=== PATIENT | female | born 1935 | race Caucasian/White ===

== ENCOUNTER → 2016-08-11 | Outpatient (CLI) | payer MEDICARE ==
[2016-08-11 16:54] LABS: Appearance,Urine Clear (Clear); Bilirubin,Urine Negative (Negative); Glucose,Urine (UA) Negative (Negative); Ketones,Urine Negative (Negative); Leukocyte Esterase,Urine Negative (Negative); Nitrite,Urine Negative (Negative); PH, Urine 5.5 (5.0-8.0); Protein,Urine Negative (Negative); Specific Gravity,Urine 1.009 (1.001-1.035); UA Billing (MACRO vs. MICRO) CHEM; Urobilinogen,Urine <2.0 mg/dL (<2.0)
== END ==
LOC: LABWHC1 15:55
PROVIDERS: ATTEND Physician Assistant
DX: N39.0 Urinary tract infection, site not specified (principal)
CPT/HCPCS: 81003; 87086

== ENCOUNTER → 2016-09-01 | Outpatient (CLI) | payer MEDICARE ==
--- NOTE | 2016-09-01 14:45 | CT ---
EXAMINATION TYPE: CT brain wo/w con DATE OF EXAM: 09/01/2016 COMPARISON: CT brain July 06, 2015. HISTORY: dizziness, loss of smell CT DLP: 1922 mGycm Automated exposure control for dose reduction was used. CONTRAST: CT scan of the head is performed with IV Contrast, patient injected with 100 mL of Omnipaque 300. FINDINGS: Noncontrast images show no acute intracranial hemorrhage or midline shift. There is ventricular and s ulcal prominence consistent with mild age-related cerebral atrophy. Postcontrast images show no suspi cious enhancing mass. There is mucous retention cyst or polyp in the posterior right maxillary sinus redemonstrated. An air-fluid levels also now felt present. There is new dependent opacity left spheno id sinus. There is small mucous retention cyst or polyp in the medial left frontal sinus redemonstrat ed. The globes are intact bilaterally. Suprasellar cistern is maintained. No pituitary enlargement id entified. IMPRESSION: Mild age-related cerebral atrophy redemonstrated. No suspicious enhancing mass noted. New acute bilateral sphenoid sinus disease. Suspect enlarging posterior right sphenoid mucous retention cyst or polyp.
== END | disposition home or self-care (01) ==
LOC: RADCTMAIN 13:05
PROVIDERS: ATTEND Family Medicine
DX: G31.1 Senile degeneration of brain, not elsewhere classified (principal)
CPT/HCPCS: 82565; 84520; 70470; 36415; Q9967

== ENCOUNTER → 2017-03-10 | Outpatient (CLI) | payer MEDICARE ==
--- NOTE | 2017-03-10 14:06 | CT ---
EXAMINATION TYPE: CT sinus wo con DATE OF EXAM: 03/10/2017 COMPARISON: NONE HISTORY: 81-year-old female with loss of smell, chronic Sinusitis CT DLP: 628.7 mGycm Automated exposure control for dose reduction was used. TECHNIQUE: Noncontrast axial views of the paranasal sinuses were obtained. Coronal reconstructions pe rformed. FINDINGS: There is some lobulated mucosal thickening within the left sphenoid sinus and a possible 1.3 cm polyp in the right sphenoid sinus. Trace mucosal thickening ethmoid air cells and maxillary sinuses. Small mucosal retention cyst in the left frontal sinus. There is no air-fluid level. Reactive erica- osteogenesis is not seen. There is no destruction of the osseous lo of the paranasal sinuses. The osteomeatal complexes are patent. Slight undulating nasal septum. The imaged brain and orbits are normal in appearance. Mastoid air cells and middle ear cavities are well pneumatized. Reformatted images confirm above findings. IMPRESSION: Mild chronic pansinus disease. There may be a 1.3 cm polyp in the right sphenoid sinus.
== END | disposition home or self-care (01) ==
LOC: RADCTMAIN 13:21
PROVIDERS: ATTEND Otolaryngology
DX: J32.9 Chronic sinusitis, unspecified (principal)
CPT/HCPCS: 70486

== ENCOUNTER → 2018-07-21 | Outpatient (CLI) | payer MEDICARE ==
[2018-07-21 16:44] LABS: Albumin 4.1 g/dL (3.80-4.90); Albumin/Globulin Ratio 2.41 (1.60-3.17); Anion Gap 9.3 mmol/L (4.00-12.00); Carbon Dioxide 27.7 mmol/L (21.6-31.8); Globulin 1.7 g/dL (1.6-3.3); LDL Cholesterol,Calculated 63.2 mg/dL (0.0-131.0); Potassium 4.2 mmol/L (3.5-5.5); Total Bilirubin 0.8 mg/dL (0.2-1.2); Total Protein 5.8 g/dL (6.2-8.2); VLDL Calculation 19.8 mg/dL (5.00-40.00)
== END | disposition home or self-care (01) ==
LOC: LABWHC1 09:47
PROVIDERS: ATTEND Internal Medicine Interventional Cardiology
DX: E78.2 Mixed hyperlipidemia (principal)
CPT/HCPCS: 36415; 80053; 80061

== ENCOUNTER → 2018-07-21 | Outpatient (CLI) | payer MEDICARE ==
--- NOTE | 2018-07-21 09:52 | US ---
EXAMINATION TYPE: US duplex aorta DATE OF EXAM: 07/21/2018 COMPARISON: NONE CLINICAL HISTORY: Z13.9 encounter for screening unspecified. Screening, pt has no complaints at this time EXAM MEASUREMENTS: Abdominal Aorta: Proximal: 3.0 x 2.9 cm Mid: 2.1 x 2.5 cm Distal: 2.2 x 2.2 cm Bifurcation: BONI: 1.1 x 1.0 cm VENKAT: 1.0 x 0.9 cm Wall calcifications, ectatic aorta with upper limits of normal for measurements IMPRESSION: 1. No evidence for abdominal aortic aneurysm. Ectasia is noted as well as Atheromatous changes.
== END ==
LOC: RADUSWWP 09:24
PROVIDERS: ATTEND Family Medicine
DX: Z13.9 Encounter for screening, unspecified (principal)
CPT/HCPCS: 93979

== ENCOUNTER 2023-10-06 09:59 | Emergency (ER) | payer MEDICARE ==
--- NOTE | 2023-10-06 10:40 | ED ---
General Adult HPI - General Chief complaint: Fall Stated complaint: L ear cut/injury Time Seen by Provider: 10/06/23 10:08 Source: patient, RN notes reviewed Mode of arrival: ambulatory Limitations: no limitations - History of Present Illness Initial comments: 88-year-old female presents to the emergency department for evaluation of syncopal episode with fall. Patient states that she got up from bed this morning and started to feel lightheaded. She states that she lost consciousness for a few seconds causing her to fall and hit her head on the door frame. She states that she hit her left ear. She denies any other preceding symptoms. Denies chest pain, shortness of breath. Denies blood thinners. - Related Data Home Medications Medication Instructions Recorded Confirmed Acetaminophen Tab [Tylenol Tab] 500 mg PO DAILY 10/06/23 10/06/23 Aspirin EC [Ecotrin Low Dose] 81 mg PO DAILY 10/06/23 10/06/23 Atorvastatin [Lipitor] 40 mg PO HS 10/06/23 10/06/23 Citalopram Hydrobromide [CeleXA] 20 mg PO DAILY 10/06/23 10/06/23 L.acidoph,Paracasei, B.lactis 1 cap PO DAILY 10/06/23 10/06/23 [Probiotic] Midodrine HCl [ProAmantine] 2.5 mg PO TID 10/06/23 10/06/23 Psyllium Husk [Fiber Capsule] 1.2 gm PO DAILY 10/06/23 10/06/23 oxyBUTYnin chloride [Ditropan] 5 mg PO DAILY 10/06/23 10/06/23 Previous Rx's Medication Instructions Recorded Ciprofloxacin HCl 500 mg PO BID #14 tab 10/06/23 Allergies Allergy/AdvReac Type Severity Reaction Status Date / Time Penicillins Allergy Rash/Hives Verified 10/06/23 13:37 Review of Systems ROS Statement: Those systems with pertinent positive or pertinent negative responses have been documented in the HPI. ROS Other: All systems not noted in ROS Statement are negative. Past Medical History Past Medical History: Coronary Artery Disease (CAD), Hyperlipidemia, Hypertension, Pulmonary Embolus (PE) Additional Past Medical History / Comment(s): anxiety , PHLEBITIS AND PE 25 YEARS AGO, SHINGLES 2 YEARS AGO History of Any Multi-Drug Resistant Organisms: None Reported Past Surgical History: Adenoidectomy, Bladder Surgery, Hysterectomy, Tonsillectomy Additional Past Surgical History / Comment(s): Stent placement 2014.IMPLANTED TOOTH(METAL POST) Past Anesthesia/Blood Transfusion Reactions: No Reported Reaction Date of Last Stent Placement:: 2014 Past Psychological History: Anxiety Past Alcohol Use History: Occasional Past Drug Use History: None Reported - Past Family History Father Family Medical History: Myocardial Infarction ([place]) Additional Family Medical History / Comment(s): AGE 59 FROM 3RD [place] Mother Additional Family Medical History / Comment(s): AGE 57 CEREBRAL ANEURYSM General Exam Limitations: no limitations General appearance: alert, in no apparent distress Head exam: Present: normocephalic, other (1.5cm laceration to left auricle) Eye exam: Present: normal appearance, PERRL, EOMI. Absent: scleral icterus, conjunctival injection, periorbital swelling ENT exam: Present: normal oropharynx, TM's normal bilaterally, other (1.5cm laceration to left auricle) Neck exam: Present: normal inspection. Absent: tenderness, meningismus, lymphadenopathy Respiratory exam: Present: normal lung sounds bilaterally. Absent: respiratory distress, wheezes, rales, rhonchi, stridor Cardiovascular Exam: Present: regular rate, irregular rhythm, normal heart sounds. Absent: systolic murmur, diastolic murmur, rubs, gallop, clicks Extremities exam: Present: normal inspection, full ROM, normal capillary refill. Absent: tenderness, pedal edema, joint swelling, calf tenderness Back exam: Present: normal inspection Neurological exam: Present: alert, oriented X3, CN II-XII intact Psychiatric exam: Present: normal affect, normal mood Skin exam: Present: warm, dry, normal color, other. Absent: intact, rash Course Vital Signs 10/06/23 10/06/23 10/06/23 10:00 10:25 11:05 Temperature 97.9 F 98.2 F Pulse Rate 69 74 71 Respiratory 18 18 17 Rate Blood Pressure 85/56 140/73 174/79 Blood Pressure [Left Arm Sitting] Blood Pressure [Left Arm Standing] Blood Pressure [Left Arm Supine] O2 Sat by Pulse 94 L 95 96 Oximetry 10/06/23 10/06/23 10/06/23 12:02 13:58 16:30 Temperature 97.7 F Pulse Rate 70 73 Respiratory 16 18 Rate Blood Pressure 172/83 164/91 Blood Pressure 100/60 [Left Arm Sitting] Blood Pressure 78/54 [Left Arm Standing] Blood Pressure 182/82 [Left Arm Supine] O2 Sat by Pulse 97 98 Oximetry 10/06/23 10/06/23 16:47 16:59 Temperature 98.4 F Pulse Rate 65 70 Respiratory 16 18 Rate Blood Pressure 187/92 181/86 Blood Pressure [Left Arm Sitting] Blood Pressure [Left Arm Standing] Blood Pressure [Left Arm Supine] O2 Sat by Pulse 97 95 Oximetry Procedures - Laceration Laceration #1 Consent Obtained: verbal consent Indication: laceration Site: other (Ear) Size (cm): 2 Description: linear Depth: [id number] Anesthetic Used: lidocaine 1% Anesthesia Technique: nerve block Pre-repair: wound explored, irrigated extensively Type of Sutures: vicryl, other Size of Sutures: 5-0, 6-0 Number of Sutures: 6 (2 Vicryl) Technique: simple, interrupted Patient Tolerated Procedure: well, no complications Medical Decision Making - Medical Decision Making Was pt. sent in by a medical professional or institution (Dr. PA, [employer], urgent care, hospital, or prison...) When possible be specific @ -No Did you speak to anyone other than the patient for history (EMS, parent, family, police, friend...)? What history was obtained from this source @ -Patient's son provided some history for this patient Did you review nursing and triage notes (agree or disagree)? Why? @ -I reviewed and agree with nursing and triage notes Were old charts reviewed (outside hosp., previous admission, EMS record, old EKG, old radiological studies, urgent care reports/EKG's, prison records)? Report findings @ -No old charts were reviewed Differential Diagnosis (chest pain, altered mental status, abdominal pain women, abdominal pain men, vaginal bleeding, weakness, fever, dyspnea, syncope, headache, dizziness, GI bleed, back pain, seizure, CVA, palpatations, mental health, musculoskeletal)? @ -Differential Syncope: Valvular disease, hypertrophic cardiomyopathy, pulmonary embolism, tamponade, tachycardia, bradycardia, [place], hypovolemia, hemorrhage, dissection, anemia, intracranial hemorrhage, seizure, hypoglycemia, carbon monoxide poisoning, this is not meant to be an all-inclusive list. EKG interpreted by me (3pts min.). @ -EKG at 1011 shows right bundle branch pattern rate 80, NV 232, QRS 125, QTQTc [id number] X-rays interpreted by me (1pt min.). @ -None done CT interpreted by me (1pt min.). @ -CT brain and C-spine shows no acute intracranial process, no acute C-spine fracture or traumatic malalignment U/S interpreted by me (1pt. min.). @ -None done What testing was considered but not performed or refused? (CT, X-rays, U/S, labs)? Why? @ -None What meds were considered but not given or refused? Why? @ -None Did you discuss the management of the patient with other professionals (professionals i.e. , PA, [employer], lab, RT, psych nurse, social services technician, childbirth educator, t eacher, chief information officer, case consultant)? Give summary @ -No Was smoking cessation discussed for >3mins.? @ -No Was critical care preformed (if so, how long)? @ -No Were there social determinants of health that impacted care today? How? (Homelessness, low income, unemployed, alcoholism, drug addiction, transportation, low edu. Level, literacy, decrease access to med. care, snf, rehab)? @ -No Was there de-escalation of care discussed even if they declined (Discuss DNR or withdrawal of care, Hospice)? DNR status @ -No What co-morbidities impacted this encounter? (DM, HTN, Smoking, COPD, CAD, Cancer, CVA, ARF, Chemo, Hep., AIDS, mental health diagnosis, sleep apnea, morbid obesity)? @ -None Was patient admitted / discharged? Hospital course, mention meds given and route, prescriptions, significant lab abnormalities, going to OR and other pertinent info. @ -Discharge. Patient presented to the emergency department for evaluation of syncopal episode with ear laceration. CT brain and C-spine was obtained which shows no acute intracranial process, no acute C-spine fracture or traumatic malalignment. Laboratory studies obtained CBC unremarkable, mild hyponatremia 131. UA shows no evidence of infectious process. Laceration of the ear was repaired and a pressure dressing was applied. Patient will be started on ciprofloxacin prophylactically for chondritis. She was also updated on tetanus vaccination. Orthostatics were evaluated and orthostatic positive from sitting to standing. Patient was given a dose of her midodrine and provided IV fluids. She did have some improvement in her blood pressure but was still orthostatic positive although she was not symptomatic at that time. I recommended observation but patient refused admission. Patient will be discharged. She is advised to follow-up with ENT for the ear laceration. She is understanding and agreeable with this plan. Patient stable at time of discharge. Case discussed with Dr. Banegas Undiagnosed new problem with uncertain prognosis? @ -No Drug Therapy requiring intensive monitoring for toxicity (Heparin, Nitro, Insulin, Cardizem)? @ -No Were any procedures done? @ -Laceration repair Diagnosis/symptom? @ -Laceration, syncope, fall, head injury Acute, or Chronic, or Acute on Chronic? @ -Acute Uncomplicated (without systemic symptoms) or Complicated (systemic symptoms)? @ -Complicated Side effects of treatment? @ -No Exacerbation, Progression, or Severe Exacerbation? @ -No Poses a threat to life or bodily function? How? (Chest pain, [place], [place], pneumonia, PE, COPD, DKA, ARF, appy, cholecystitis, CVA, Diverticulitis, Homicidal, Suicidal, threat to staff... and all critical care pts) @ -No - Lab Data Result diagrams: 10/06/23 10:35 10/06/23 10:35 Lab Results 10/06/23 10/06/23 10/06/23 Range/Units 10:35 10:35 10:35 WBC 6.1 (3.8-10.6) k/uL RBC 4.67 (3.80-5.40) m/uL Hgb 13.9 (11.4-16.0) gm/dL Hct 42.9 (34.0-46.0) % MCV 91.9 (80.0-100.0) fL MCH 29.7 (25.0-35.0) pg MCHC 32.4 (31.0-37.0) g/dL RDW 14.8 (11.5-15.5) % Plt Count 251 (150-450) k/uL MPV 7.4 Neutrophils % 84 % Lymphocytes % 8 % Monocytes % 6 % Eosinophils % 1 % Basophils % 0 % Neutrophils # 5.1 (1.3-7.7) k/uL Lymphocytes # 0.5 L (1.0-4.8) k/uL Monocytes # 0.3 (0-1.0) k/uL Eosinophils # 0.1 (0-0.7) k/uL Basophils # 0.0 (0-0.2) k/uL PT 10.7 (10.0-12.5) sec INR 1.0 (<1.2) APTT 23.1 (22.0-30.0) sec Sodium (137-145) mmol/L Potassium (3.5-5.1) mmol/L Chloride (98-107) mmol/L Carbon Dioxide (22-30) mmol/L Anion Gap mmol/L BUN (7-17) mg/dL Creatinine (0.52-1.04) mg/dL Est GFR (CKD-EPI)AfAm (>60 ml/min/1.73 sqM) Est GFR (CKD-EPI)NonAf (>60 ml/min/1.73 sqM) Glucose (74-99) mg/dL Calcium (8.4-10.2) mg/dL Magnesium (1.6-2.3) mg/dL Total Bilirubin (0.2-1.3) mg/dL AST (14-36) U/L ALT (4-34) U/L Alkaline Phosphatase (38-126) U/L Troponin I (0.000-0.034) ng/mL Total Protein (6.3-8.2) g/dL Albumin (3.5-5.0) g/dL Urine Color Colorless Urine Appearance Clear (Clear) Urine pH 6.0 (5.0-8.0) Ur Specific [place] 1.009 (1.001-1.035) Urine Protein Negative (Negative) Urine Glucose (UA) Negative (Negative) Urine Ketones Negative (Negative) Urine Blood Negative (Negative) Urine Nitrite Negative (Negative) Urine Bilirubin Negative (Negative) Urine Urobilinogen <2.0 (<2.0) mg/dL Ur Leukocyte Esterase Negative (Negative) 10/06/23 10/06/23 Range/Units 10:35 10:35 WBC (3.8-10.6) k/uL RBC (3.80-5.40) m/uL Hgb (11.4-16.0) gm/dL Hct (34.0-46.0) % MCV (80.0-100.0) fL MCH (25.0-35.0) pg MCHC (31.0-37.0) g/dL RDW (11.5-15.5) % Plt Count (150-450) k/uL MPV Neutrophils % % Lymphocytes % % Monocytes % % Eosinophils % % Basophils % % Neutrophils # (1.3-7.7) k/uL Lymphocytes # (1.0-4.8) k/uL Monocytes # (0-1.0) k/uL Eosinophils # (0-0.7) k/uL Basophils # (0-0.2) k/uL PT (10.0-12.5) sec INR (<1.2) APTT (22.0-30.0) sec Sodium 131 L (137-145) mmol/L Potassium 3.8 (3.5-5.1) mmol/L Chloride 100 (98-107) mmol/L Carbon Dioxide 25 (22-30) mmol/L Anion Gap 6 mmol/L BUN 20 H (7-17) mg/dL Creatinine 0.94 (0.52-1.04) mg/dL Est GFR (CKD-EPI)AfAm 63 (>60 ml/min/1.73 sqM) Est GFR (CKD-EPI)NonAf 55 (>60 ml/min/1.73 sqM) Glucose 104 H (74-99) mg/dL Calcium 9.4 (8.4-10.2) mg/dL Magnesium 2.0 (1.6-2.3) mg/dL Total Bilirubin 1.1 (0.2-1.3) mg/dL AST 23 (14-36) U/L ALT 16 (4-34) U/L Alkaline Phosphatase 65 (38-126) U/L Troponin I <0.012 (0.000-0.034) ng/mL Total Protein 6.0 L (6.3-8.2) g/dL Albumin 3.9 (3.5-5.0) g/dL Urine Color Urine Appearance (Clear) Urine pH (5.0-8.0) Ur Specific [place] (1.001-1.035) Urine Protein (Negative) Urine Glucose (UA) (Negative) Urine Ketones (Negative) Urine Blood (Negative) Urine Nitrite (Negative) Urine Bilirubin (Negative) Urine Urobilinogen (<2.0) mg/dL Ur Leukocyte Esterase (Negative) Disposition Clinical Impression: Fall, Syncope, Laceration Disposition: HOME SELF-CARE Condition: Stable Instructions (If sedation given, give patient instructions): Care For Your Stitches (ED) Additional Instructions: I recommend hospital admission due to low blood pressure and dizziness. Please follow up closely with your primary care provider. Return to the emergency department for new or worsening symptoms. Is patient prescribed a controlled substance at d/c from ED?: No Referrals: Francisco Fagan MD [Primary Care Provider] - 1-2 days Rafael Mills DO [Doctor of Osteopathic Medicine] - 1-2 days
[2023-10-06 10:44] LABS: Basophils % (A) 0 %; Eosinophils # (A) 0.1 k/uL (0-0.7); Eosinophils % (A) 1 %; HCT 42.9 % (34.0-46.0); HGB 13.9 gm/dL (11.4-16.0); Lymphocytes # (A) 0.5 k/uL (1.0-4.8); Lymphocytes % (A) 8 %; MCH 29.7 pg (25.0-35.0); MCHC 32.4 g/dL (31.0-37.0); MCV 91.9 fL (80.0-100.0); Mean Platelet Volume 7.4; Monocytes # (A) 0.3 k/uL (0-1.0); Monocytes % (A) 6 %; Neutrophils # (A) 5.1 k/uL (1.3-7.7); Neutrophils % (A) 84 %; Platelet Count 251 k/uL (150-450); RBC 4.67 m/uL (3.80-5.40); RDW 14.8 % (11.5-15.5); WBC 6.1 k/uL (3.8-10.6)
[2023-10-06 10:56] LABS: ALT 16 U/L (4-34); AST 23 U/L (14-36); African American GFR (CKD) 63 (>60 ml/min/1.73 sqM); Albumin 3.9 g/dL (3.5-5.0); Alkaline Phosphatase 65 U/L (38-126); Anion Gap 6 mmol/L; Blood Urea Nitrogen 20 mg/dL (7-17); Calcium 9.4 mg/dL (8.4-10.2); Carbon Dioxide 25 mmol/L (22-30); Chloride 100 mmol/L (98-107); Glucose 104 mg/dL (74-99); Non-African American GFR(CKD) 55 (>60 ml/min/1.73 sqM); Potassium 3.8 mmol/L (3.5-5.1); Sodium 131 mmol/L (137-145); Total Bilirubin 1.1 mg/dL (0.2-1.3)
[2023-10-06] MEDS: DIPH,PERTUS(ACELL)TETVAC-LF 0.5 ML VIAL IM ONE (10:56)
[2023-10-06 11:03] LABS: Partial Thromboplastin Time 23.1 sec (22.0-30.0); Prothrombin Time 10.7 sec (10.0-12.5)
--- NOTE | 2023-10-06 11:09 | CT ---
EXAMINATION TYPE: CT brain sal[place] crouch con DATE OF EXAM: 10/06/2023 COMPARISON: CT brain dated 09/01/2016 HISTORY: Fall CT DLP: 1254.9 mGycm Automated exposure control for dose reduction was used. TECHNIQUE: CT scan of the head and cervical spine are performed without contrast. Findings: Head CT: Ventricles, basal cisterns and sulci over convexities within normal limits for the patient's age and there is no mass, mass effect or shift of midline structures. There is mild diffuse decreased density in the periventricular white matter consistent with a chronic ischemic white matter demyelination. There is no acute intra or extra-axial hemorrhage. Posterior fossa including the brainstem, fourth ventricle and cerebellar pontine angles are grossly n ormal. The intraorbital contents appear normal and symmetric. Visualized paranasal sinuses are well aerated. CT cervical spine: Craniovertebral junction relationships and prevertebral soft tissues are normal. The cervical vertebral segments are normal in height and alignment and there is no fracture subluxati on. There is moderate degenerative disc space with disc space narrowing and spondylosis at the C5-6 level . There is mild to moderate degeneration of multiple facet joints and uncovertebral joints in mid-low er cervical spine. There is no bony encroachment of the cervical spinal canal there is moderate bony neural foraminal encroachment at C5-6 bilaterally. The bony cervical canal is widely patent and there is no bony encroachment of the neural foramina. The paraspinal soft tissues unremarkable. IMPRESSION: 1. Head CT: No acute bleed or mass effect. Mild senescent changes 2. CT cervical spine: No acute trauma.
[2023-10-06] MEDS: LIDOCAINE 1% INJ 10MG/ML (20 ML MDV) SQ ONE (11:29)
[2023-10-06 13:05] LABS: Appearance,Urine Clear (Clear); Bilirubin,Urine Negative (Negative); Blood,Urine Negative (Negative); Color,Urine Colorless; Glucose,Urine (UA) Negative (Negative); Ketones,Urine Negative (Negative); Leukocyte Esterase,Urine Negative (Negative); Nitrite,Urine Negative (Negative); Protein,Urine Negative (Negative); Specific Gravity,Urine 1.009 (1.001-1.035); Urobilinogen,Urine <2.0 mg/dL (<2.0)
[2023-10-06] MEDS: MIDODRINE 5 MG TAB PO STA (14:34)
[2023-10-06] MEDS: SODIUM CHLORIDE 0.9% 1,000 ML IV ONE (14:36)
[2023-10-06 17:04] VITALS: BP 181/86; PULSE 70; RESP 18; TEMP 98.4
== END 2023-10-06 17:11 | disposition home or self-care (01) ==
LOC: EC 09:59
DX: S01.312A Laceration without foreign body of left ear, initial encounter (principal); R55 Syncope and collapse; Z88.0 Allergy status to penicillin; Z23 Encounter for immunization; W01.110A Fall on same level from slipping, tripping and stumbling with subsequent striking against sharp glass, initial encounter
CPT/HCPCS: 36415; 93005; 80053; 83735; 84484; 85025; 85610; 85730; 81003; 72125; 70450; 90715; 99284; 12011; 90471; 96360; 96361; J2001

== ENCOUNTER 2023-10-07 14:03 | Inpatient (IN) | payer MEDICARE ==
[2023-10-07 16:14] LABS: Basophils % (A) 0 %; Eosinophils # (A) 0.1 k/uL (0-0.7); Eosinophils % (A) 1 %; HCT 39.6 % (34.0-46.0); HGB 13.2 gm/dL (11.4-16.0); Lymphocytes # (A) 0.5 k/uL (1.0-4.8); Lymphocytes % (A) 8 %; MCH 30.9 pg (25.0-35.0); MCHC 33.5 g/dL (31.0-37.0); MCV 92.2 fL (80.0-100.0); Mean Platelet Volume 6.9; Monocytes # (A) 0.4 k/uL (0-1.0); Monocytes % (A) 6 %; Neutrophils # (A) 5.4 k/uL (1.3-7.7); Neutrophils % (A) 84 %; Platelet Count 228 k/uL (150-450); RBC 4.29 m/uL (3.80-5.40); RDW 14.5 % (11.5-15.5); WBC 6.5 k/uL (3.8-10.6)
--- NOTE | 2023-10-07 16:28 | ED ---
General Adult HPI - General Chief complaint: Recheck/Abnormal Lab/Rx Stated complaint: Fall/Head Time Seen by Provider: 10/07/23 14:53 Source: patient, RN notes reviewed Mode of arrival: ambulatory Limitations: no limitations - History of Present Illness Initial comments: 88-year-old female presents to the emergency department for evaluation of lightheaded episodes. Patient was evaluated here yesterday for a syncopal episode resulting in her hitting her head and causing a laceration to her ear. Patient was adamant on being discharged yesterday although admission was recommended at that time due to positive orthostatic vital signs and lightheaded ness. Patient reports continued symptoms now. She is taking her midodrine as prescribed. Patient hoping for placement into rehabilitation facility. - Related Data Home Medications Medication Instructions Recorded Confirmed Acetaminophen Tab [Tylenol Tab] 500 mg PO DAILY 10/06/23 10/07/23 Aspirin EC [Ecotrin Low Dose] 81 mg PO DAILY 10/06/23 10/07/23 Atorvastatin [Lipitor] 40 mg PO HS 10/06/23 10/07/23 Citalopram Hydrobromide [CeleXA] 20 mg PO DAILY 10/06/23 10/07/23 L.acidoph,Paracasei, B.lactis 1 cap PO DAILY 10/06/23 10/07/23 [Probiotic] Midodrine HCl [ProAmantine] 2.5 mg PO TID 10/06/23 10/07/23 Psyllium Husk [Fiber Capsule] 1.2 gm PO DAILY 10/06/23 10/07/23 oxyBUTYnin chloride [Ditropan] 5 mg PO DAILY 10/06/23 10/07/23 dexAMETHasone [Decadron Elixir] 0.5 mg PO DIRECTED 10/07/23 10/07/23 Previous Rx's Medication Instructions Recorded Ciprofloxacin HCl 500 mg PO BID #14 tab 10/06/23 Allergies Allergy/AdvReac Type Severity Reaction Status Date / Time Penicillins Allergy Rash/Hives Verified 10/07/23 17:51 Review of Systems ROS Statement: Those systems with pertinent positive or pertinent negative responses have been documented in the HPI. ROS Other: All systems not noted in ROS Statement are negative. Past Medical History Past Medical History: Coronary Artery Disease (CAD), Hyperlipidemia, Hypertension, Pulmonary Embolus (PE) Additional Past Medical History / Comment(s): anxiety , PHLEBITIS AND PE 25 YEARS AGO, SHINGLES 2 YEARS AGO History of Any Multi-Drug Resistant Organisms: None Reported Past Surgical History: Adenoidectomy, Bladder Surgery, Hysterectomy, Tonsillectomy Additional Past Surgical History / Comment(s): Stent placement 2014.IMPLANTED TOOTH(METAL POST) Past Anesthesia/Blood Transfusion Reactions: No Reported Reaction Date of Last Stent Placement:: 2014 Past Psychological History: Anxiety Smoking Status: Never smoker Past Alcohol Use History: Occasional Past Drug Use History: None Reported - Past Family History Father Family Medical History: Myocardial Infarction (MT) Additional Family Medical History / Comment(s): AGE 59 FROM 3RD MT Mother Additional Family Medical History / Comment(s): AGE 57 CEREBRAL ANEURYSM General Exam Limitations: no limitations General appearance: alert, in no apparent distress Head exam: Present: atraumatic, normocephalic, normal inspection Eye exam: Present: normal appearance, PERRL, EOMI. Absent: scleral icterus, conjunctival injection, periorbital swelling ENT exam: Present: normal exam, mucous membranes moist Neck exam: Present: normal inspection. Absent: tenderness, meningismus, lymphadenopathy Respiratory exam: Present: normal lung sounds bilaterally. Absent: respiratory distress, wheezes, rales, rhonchi, stridor Cardiovascular Exam: Present: regular rate, normal rhythm, normal heart sounds. Absent: systolic murmur, diastolic murmur, rubs, gallop, clicks Extremities exam: Present: normal inspection, full ROM, normal capillary refill. Absent: tenderness, pedal edema, joint swelling, calf tenderness Back exam: Present: normal inspection Neurological exam: Present: alert, oriented X3 Course Vital Signs 10/07/23 10/07/23 10/07/23 14:10 15:53 16:06 Temperature 97.5 F L Pulse Rate 57 L 58 L Pulse Rate [ 65 Right Pulse Oximetery] Pulse Rate [ 60 Right Sitting Pulse Oximetery ] Pulse Rate [ 80 Right Standing Pulse Oximetery ] Respiratory 18 16 Rate Blood Pressure 119/76 180/83 Blood Pressure 133/74 [Right Arm Sitting] Blood Pressure 94/56 [Right Arm Standing] Blood Pressure 184/87 [Right Arm Supine] O2 Sat by Pulse 96 96 Oximetry Medical Decision Making - Medical Decision Making Was pt. sent in by a medical professional or institution (Dr., PA, RUG WEAVER, urgent care, hospital, or fci...) When possible be specific @ -No Did you speak to anyone other than the patient for history (EMS, parent, family, police, friend...)? What history was obtained from this source @ -No Did you review nursing and triage notes (agree or disagree)? Why? @ -I reviewed and agree with nursing and triage notes Were old charts reviewed (outside hosp., previous admission, EMS record, old EKG, old radiological studies, urgent care reports/EKG's, fci records)? Report findings @ -No old charts were reviewed Differential Diagnosis (chest pain, altered mental status, abdominal pain women, abdominal pain men, vaginal bleeding, weakness, fever, dyspnea, syncope, headache, dizziness, GI bleed, back pain, seizure, CVA, palpatations, mental health, musculoskeletal)? @ -Differential Syncope: Valvular disease, hypertrophic cardiomyopathy, pulmonary embolism, tamponade, tachycardia, bradycardia, MT, hypovolemia, hemorrhage, dissection, anemia, intracranial hemorrhage, seizure, hypoglycemia, carbon monoxide poisoning, this is not meant to be an all-inclusive list. EKG interpreted by me (3pts min.). @ -As above X-rays interpreted by me (1pt min.). @ -None done CT interpreted by me (1pt min.). @ -None done U/S interpreted by me (1pt. min.). @ -None done What testing was considered but not performed or refused? (CT, X-rays, U/S, labs)? Why? @ -None What meds were considered but not given or refused? Why? @ -None Did you discuss the management of the patient with other professionals (professionals i.e. SAUNDRA Mayo, R[employer] WE[employer]ER, lab, RT, psych nurse, nephrology social worker, container repairer, teacher, parachute officer, caser)? Give summary @ -Case discussed with Dr. Leyva who is accepting of the admission Was smoking cessation discussed for >3mins.? @ -No Was critical care preformed (if so, how long)? @ -No Were there social determinants of health that impacted care today? How? (Terry elessness, low income, unemployed, alcoholism, drug addiction, transportation, low edu. Level, literacy, decrease access to med. care, longterm, rehab)? @ -No Was there de-escalation of care discussed even if they declined (Discuss DNR or withdrawal of care, Hospice)? DNR status @ -No What co-morbidities impacted this encounter? (DM, HTN, Smoking, COPD, CAD, Cancer, CVA, ARF, Chemo, Hep., AIDS, mental health diagnosis, sleep apnea, morbid obesity)? @ -None Was patient admitted / discharged? Hospital course, mention meds given and route, prescriptions, significant lab abnormalities, going to OR and other pertinent info. @ -Admitted. Patient presented to the emergency department for evaluation of syncopal episode that occurred yesterday and potential rehab placement. Laboratory studies repeated today showing mild hyponatremia at 132 no significant difference from yesterday. Orthostatic vital signs positive. Patient will be admitted for facility placement. Case discussed with Dr. Leyva, accepting of the admission. Case management, PT and OT consulted. Patient stable at time of admission. Case discussed with Dr. Banegas Undiagnosed new problem with uncertain prognosis? @ -No Drug Therapy requiring intensive monitoring for toxicity (Heparin, Nitro, Insulin, Cardizem)? @ -No Were any procedures done? @ -No Diagnosis/symptom? @ -Syncope, orthostatic hypotension Acute, or Chronic, or Acute on Chronic? @ -Acute Uncomplicated (without systemic symptoms) or Complicated (systemic symptoms)? @ -Uncomplicated Side effects of treatment? @ -No Exacerbation, Progression, or Severe Exacerbation? @ -No Poses a threat to life or bodily function? How? (Chest pain, USA, MT, pneumonia, PE, COPD, DKA, ARF, appy, cholecystitis, CVA, Diverticulitis, Homicidal, Suicidal, threat to staff... and all critical care pts) @ -No - Lab Data Result diagrams: 10/07/23 15:52 10/07/23 15:52 Lab Results 10/07/23 10/07/23 Range/Units 15:52 15:52 WBC 6.5 (3.8-10.6) k/uL RBC 4.29 (3.80-5.40) m/uL Hgb 13.2 (11.4-16.0) gm/dL Hct 39.6 (34.0-46.0) % MCV 92.2 (80.0-100.0) fL MCH 30.9 (25.0-35.0) pg MCHC 33.5 (31.0-37.0) g/dL RDW 14.5 (11.5-15.5) % Plt Count 228 (150-450) k/uL MPV 6.9 Neutrophils % 84 % Lymphocytes % 8 % Monocytes % 6 % Eosinophils % 1 % Basophils % 0 % Neutrophils # 5.4 (1.3-7.7) k/uL Lymphocytes # 0.5 L (1.0-4.8) k/uL Monocytes # 0.4 (0-1.0) k/uL Eosinophils # 0.1 (0-0.7) k/uL Basophils # 0.0 (0-0.2) k/uL Sodium 132 L (137-145) mmol/L Potassium 3.8 (3.5-5.1) mmol/L Chloride 103 (98-107) mmol/L Carbon Dioxide 22 (22-30) mmol/L Anion Gap 7 mmol/L BUN 24 H (7-17) mg/dL Creatinine 0.94 (0.52-1.04) mg/dL Est GFR (CKD-EPI)AfAm 63 (>60 ml/min/1.73 sqM) Est GFR (CKD-EPI)NonAf 55 (>60 ml/min/1.73 sqM) Glucose 91 (74-99) mg/dL Calcium 8.9 (8.4-10.2) mg/dL Total Bilirubin 0.9 (0.2-1.3) mg/dL AST 22 (14-36) U/L ALT 14 (4-34) U/L Alkaline Phosphatase 67 (38-126) U/L Total Protein 5.6 L (6.3-8.2) g/dL Albumin 3.6 (3.5-5.0) g/dL Disposition Clinical Impression: Orthostatic hypotension Disposition: ADMITTED IP TO THIS HOSP Condition: Stable Is patient prescribed a controlled substance at d/c from ED?: No
[2023-10-07 16:40] LABS: ALT 14 U/L (4-34); AST 22 U/L (14-36); African American GFR (CKD) 63 (>60 ml/min/1.73 sqM); Albumin 3.6 g/dL (3.5-5.0); Alkaline Phosphatase 67 U/L (38-126); Anion Gap 7 mmol/L; Blood Urea Nitrogen 24 mg/dL (7-17); Calcium 8.9 mg/dL (8.4-10.2); Carbon Dioxide 22 mmol/L (22-30); Chloride 103 mmol/L (98-107); Glucose 91 mg/dL (74-99); Non-African American GFR(CKD) 55 (>60 ml/min/1.73 sqM); Potassium 3.8 mmol/L (3.5-5.1); Sodium 132 mmol/L (137-145); Total Bilirubin 0.9 mg/dL (0.2-1.3); Total Protein 5.6 g/dL (6.3-8.2)
[2023-10-07] MEDS ORDERED: ACETAMINOPHEN TAB 325 MG TAB PO PRN (16:49)
[2023-10-07] MEDS ORDERED: NALOXONE 0.4 MG/ML 1 ML VIAL IV PRN (16:49)
[2023-10-07] MEDS: ATORVASTATIN 40 MG TAB PO SCH (21:42)
[2023-10-07] MEDS: CIPROFLOXACIN HCL 500 MG TAB PO SCH (21:42)
[2023-10-07] MEDS: SODIUM CHLORIDE 0.9% 1,000 ML IV SCH (23:54)
[2023-10-08] MEDS: MIDODRINE 5 MG TAB PO SCH ×2 (06:38→13:03)
[2023-10-08] MEDS: ASPIRIN 81 MG PO SCH (09:01)
[2023-10-08] MEDS: LACTOBACILLUS ACIDOPHILUS/PECT 1 EACH CAPSULE PO SCH (09:01)
[2023-10-08] MEDS: oxyBUTYnin chloride 5 MG TAB PO SCH (09:01)
[2023-10-08] MEDS: PSYLLIUM HUSK 100% 6 GM PACKET PO SCH (09:02)
--- NOTE | 2023-10-08 11:15 | P.HPIM ---
History of Present Illness This is a pleasant 88 years old female with past medical history of multiple medical problems including hypertension, hyperlipidemia, pulmonary embolism, anxiety. Presents because of falling Patient states that yesterday she was rushing to open the door for workers to get home and start working through her garage. As she was doing that she felt dizzy and passed out Patient thinks is very weak and she woke up right away and she was sent to the hospital Denies chest pain or dyspnea. No abdominal pain vomiting diarrhea, no urinary complaint. No headache dizziness weakness numbness She denies smoking alcohol or illicit drugs Patient states that few days ago she has diarrhea and low appetite but now that is resolved, her appetite back and her diarrhea stopped 2 weeks ago she was treated for UTI with Cipro which is resolved now and she is not taking Cipro anymore On admission she has positive orthostasis She is afebrile and rest of vitals are stable She has mild hyponatremia 132, BUN elevated 24 creatinine within the reference ranges 0.9 CBC and rest of BMP and liver enzymes were unremarkable Patient's wants to be DNR Review of Systems Review of systems CONSTITUTIONAL: No fever, no malaise, no fatigue. HEENT: No recent visual problems or hearing problems. Denied any sore throat. CARDIOVASCULAR: No orthopnea, PND, no palpitations, no syncope. PULMONARY: No shortness of breath, no cough, no hemoptysis. GASTROINTESTINAL: No diarrhea, no nausea, no vomiting, no abdominal pain. Normoactive bowel sounds. NEUROLOGICAL: No headaches, no weakness, no numbness. HEMATOLOGICAL: Denies any bleeding or petechiae. GENITOURINARY: Denies any burning micturition, frequency, or urgency. MUSCULOSKELETAL/RHEUMATOLOGICAL: Denies any joint pain, swelling, or any muscle pain. ENDOCRINE: Denies any polyuria or polydipsia. Past Medical History Past Medical History: Coronary Artery Disease (CAD), Hyperlipidemia, Hypertension, Pulmonary Embolus (PE) Additional Past Medical History / Comment(s): anxiety , PHLEBITIS AND PE 25 YEARS AGO, SHINGLES 2 YEARS AGO History of Any Multi-Drug Resistant Organisms: None Reported Past Surgical History: Adenoidectomy, Bladder Surgery, Hysterectomy, Tonsillectomy Additional Past Surgical History / Comment(s): Stent placement 2014.IMPLANTED TOOTH(METAL POST) Past Anesthesia/Blood Transfusion Reactions: No Reported Reaction Date of Last Stent Placement:: 2014 Past Psychological History: Anxiety Smoking Status: Never smoker Past Alcohol Use History: Occasional Additional Past Alcohol Use History / Comment(s): SMOKED OFF AND ON QUIT 1999 HAD SMOKED UP TO 3/4 PPD Past Drug Use History: None Reported - Past Family History Father Family Medical History: Myocardial Infarction (PA) Additional Family Medical History / Comment(s): AGE 59 FROM 3RD PA Mother Additional Family Medical History / Comment(s): AGE 57 CEREBRAL ANEURYSM Medications and Allergies Home Medications Medication Instructions Recorded Confirmed Type Acetaminophen Tab [Tylenol Tab] 500 mg PO DAILY 10/06/23 10/07/23 History Aspirin EC [Ecotrin Low Dose] 81 mg PO DAILY 10/06/23 10/07/23 History Atorvastatin [Lipitor] 40 mg PO HS 10/06/23 10/07/23 History Ciprofloxacin HCl 500 mg PO BID #14 tab 10/06/23 10/07/23 Rx Citalopram Hydrobromide [CeleXA] 20 mg PO DAILY 10/06/23 10/07/23 History L.acidoph,Paracasei, B.lactis 1 cap PO DAILY 10/06/23 10/07/23 History [Probiotic] Midodrine HCl [ProAmantine] 2.5 mg PO TID 10/06/23 10/07/23 History Psyllium Husk [Fiber Capsule] 1.2 gm PO DAILY 10/06/23 10/07/23 History oxyBUTYnin chloride [Ditropan] 5 mg PO DAILY 10/06/23 10/07/23 History dexAMETHasone [Decadron Elixir] 0.5 mg PO DIRECTED 10/07/23 10/07/23 History Allergies Allergy/AdvReac Type Severity Reaction Status Date / Time Penicillins Allergy Rash/Hives Verified 10/07/23 17:51 Physical Exam Vitals: Vital Signs Temp Pulse Pulse Pulse Pulse Resp BP 10/08/23 08:04 98.4 F 71 17 10/08/23 04:26 69 16 10/08/23 04:16 78 16 10/08/23 02:06 98.1 F 69 17 10/07/23 19:43 97.9 F 71 71 16 10/07/23 19:30 98 F 63 18 139/64 10/07/23 16:06 65 60 80 10/07/23 15:53 58 L 16 180/83 10/07/23 14:10 97.5 F L 57 L 18 119/76 BP BP BP Pulse Ox 10/08/23 08:04 144/84 96 10/08/23 04:26 95 10/08/23 04:16 96/62 87 L 10/08/23 02:06 154/87 95 10/07/23 19:43 130/76 93 L 10/07/23 19:30 95 10/07/23 16:06 133/74 94/56 184/87 10/07/23 15:53 96 10/07/23 14:10 96 Intake and Output 10/07/23 10/08/23 10/08/23 22:59 06:59 14:59 Other: Voiding Method Toilet # Voids 5 Weight 73.482 kg GENERAL: The patient is alert and oriented x3, not in any acute distress. Well developed, well nourished. -HEENT: Pupils are round and equally reacting to light. EOMI. No scleral icterus. No conjunctival pallor. Normocephalic, atraumatic. No pharyngeal erythema. No thyromegaly. Left ear wound, CARDIOVASCULAR: S1 and S2 present. No murmurs, rubs, or gallops. PULMONARY: Chest is clear to auscultation, no wheezing , no crackles. ABDOMEN: Soft, nontender, nondistended, normoactive bowel sounds. No palpable organomegaly. MUSCULOSKELETAL: No joint swelling or deformity. -EXTREMITIES: No cyanosis, clubbing, or pedal edema. right leg wound, healing NEUROLOGICAL: Gross neurological examination did not reveal any focal deficits. SKIN: No rashes. no petechiae. Results CBC & Chem 7: 10/07/23 15:52 10/07/23 15:52 Labs: Abnormal Lab Results - Last 24 Hours (Table) 10/07/23 10/07/23 Range/Units 15:52 15:52 Lymphocytes # 0.5 L (1.0-4.8) k/uL Sodium 132 L (137-145) mmol/L BUN 24 H (7-17) mg/dL Total Protein 5.6 L (6.3-8.2) g/dL Thrombosis Risk Factor Assmnt - Choose All That Apply Each Risk Factor Represents 3 Points: Age 75 years or older, History of DVT/PE Thrombosis Risk Factor Assessment Total Risk Factor Score: 6 Thrombosis Risk Factor Assessment Level: High Risk Assessment and Plan Assessment: Syncope most likely secondary to orthostatic hypotension Recent history of UTI and reactive gastroenteritis which might contributed to her dehydration and hypovolemia Hypovolemic hyponatremia, mild Dehydration secondary to above Right leg wound Left ear wound Generalized weakness secondary to above, improving Fall at home CKD stage III Plan: Patient received IV hydration 75 mL/h since yesterday evening, will going to lower to 650 mL/h for another 24 hours Will ask for wound consult for her left ear right leg Check ultrasound of the right leg No need for antibiotic Monitor labs and vitals Labs and medication were reviewed.. Continue same treatment. Continue with symptomatic treatment. Resume home medication. Monitor labs and vitals. DVT and GI prophylaxis. Further recommendations as per clinical course of the patient DVT prophylaxis: Subcutaneous heparin GI Prophylaxis: Pepcid PT/OT: Pending Prognosis is guarded
--- NOTE | 2023-10-08 12:46 | US ---
EXAMINATION TYPE: US venous doppler duplex LE RT DATE OF EXAM: 10/08/2023 11:13 AM COMPARISON: NONE CLINICAL INDICATION: Female, 88 years old with history of swelling with wound; rt leg edema SIDE PERFORMED: Right TECHNIQUE: The lower extremity deep venous system is examined utilizing real time linear array sonog rosa with graded compression, doppler sonography and color-flow sonography. VESSELS IMAGED: Common Femoral Vein Deep Femoral Vein Greater Saphenous Vein * Femoral Vein Popliteal Vein Small Saphenous Vein * Proximal Calf Veins (* superficial vessels) The deep venous system of the right lower extremity from the common femoral vein to the proximal calf veins is patent and compressible with augmentable flow with normal waveforms. IMPRESSION: No evidence of right lower extremity DVT from the common femoral vein to the proximal calf veins
[2023-10-08 13:17] LABS: NT-Pro-B-Type Natriuretic Pept 4171 pg/mL (0-450)
[2023-10-08 13:42] LABS: Blood Urea Nitrogen 20.7 mg/dL (9.0-27.0); Calcium 8.8 mg/dL (8.7-10.3); Carbon Dioxide 20.5 mmol/L (21.6-31.8); Chloride 104 mmol/L (96-109); Glucose 96 mg/dL (70-110); Potassium 3.7 mmol/L (3.5-5.5); Sodium 137 mmol/L (135-145)
[2023-10-08 14:07] VITALS: BMI 26.1
[2023-10-09] MEDS: hydrALAZINE HCL 20 MG/ML 1 ML VIAL IVP STA (07:04)
[2023-10-09 10:20] LABS: Basophils # (A) 0.04 X 10*3/uL (0.00-0.10); Basophils % (A) 0.6 %; Eosinophils # (A) 0.11 X 10*3/uL (0.04-0.35); Eosinophils % (A) 1.5 %; HCT 40.2 % (37.2-46.3); HGB 13.2 g/dL (12.0-15.0); Lymphocytes # (A) 0.61 X 10*3/uL (0.90-5.00); Lymphocytes % (A) 8.6 %; MCH 30.3 pg (27.0-32.0); MCHC 32.8 g/dL (32.0-37.0); MCV 92.4 FL (80.0-97.0); Mean Platelet Volume 10.1 FL (9.5-12.2); Monocytes # (A) 0.64 X 10*3/uL (0.20-1.00); NRBC Per 100 WBC 0 X 10*3/uL (0.00-0.01); Neutrophils # (A) 5.69 X 10*3/uL (1.80-7.70); Neutrophils % (A) 79.9 %; Platelet Count 208 X 10*3/uL (140-440); RBC 4.35 X 10*6/uL (4.10-5.20); RDW 14.8 % (11.5-14.5); WBC 7.12 X 10*3/uL (4.50-10.00)
[2023-10-09 10:35] LABS: Blood Urea Nitrogen 16.7 mg/dL (9.0-27.0); Calcium 8.8 mg/dL (8.7-10.3); Carbon Dioxide 22.9 mmol/L (21.6-31.8); Chloride 102 mmol/L (96-109); Glucose 96 mg/dL (70-110); Potassium 3.6 mmol/L (3.5-5.5); Sodium 137 mmol/L (135-145)
[2023-10-09] MEDS ORDERED: VANCOMYCIN IV PER PHARMACY 1 EACH MISC MISCELLANE PRN (13:38)
[2023-10-09] MEDS: amLODIPine 5 MG TAB PO SCH (15:39)
[2023-10-09] MEDS: DOXYCYCLINE 100 MG in SODIUM CHLORIDE 0.9% 100 ML IVPB SCH (17:20)
[2023-10-09 19:03] LABS: Appearance,Urine Clear (Clear); Bilirubin,Urine Negative (Negative); Blood,Urine Negative (Negative); Color,Urine Light Yellow; Glucose,Urine (UA) Negative (Negative); Ketones,Urine Negative (Negative); Leukocyte Esterase,Urine Large (Negative); Nitrite,Urine Negative (Negative); Protein,Urine Negative (Negative); RBC,Urine 2 /hpf (0-5); Specific Gravity,Urine 1.012 (1.001-1.035); Squamous Epithelial Cell,Urine 2 /hpf (0-4); Urobilinogen,Urine <2.0 mg/dL (<2.0); WBC,Urine 22 /hpf (0-5)
--- NOTE | 2023-10-10 08:11 | P.PN ---
Subjective This is a pleasant 88 years old female with past medical history of multiple medical problems including hypertension, hyperlipidemia, pulmonary embolism, anxiety. Presents because of falling Patient states that yesterday she was rushing to open the door for workers to get home and start working through her garage. As she was doing that she felt dizzy and passed out Patient thinks is very weak and she woke up right away and she was sent to the hospital Denies chest pain or dyspnea. No abdominal pain vomiting diarrhea, no urinary complaint. No headache dizziness weakness numbness She denies smoking alcohol or illicit drugs Patient states that few days ago she has diarrhea and low appetite but now that is resolved, her appetite back and her diarrhea stopped 2 weeks ago she was treated for UTI with Cipro which is resolved now and she is not taking Cipro anymore On admission she has positive orthostasis She is afebrile and rest of vitals are stable She has mild hyponatremia 132, BUN elevated 24 creatinine within the reference ranges 0.9 CBC and rest of BMP and liver enzymes were unremarkable Patient's wants to be DNR Objective - Vital Signs Vital signs: Vital Signs Temp 97.8 F 10/09/23 07:43 Pulse 76 10/09/23 12:28 Resp 17 10/09/23 07:43 BP 129/71 10/09/23 12:28 Pulse Ox 92 L 10/09/23 07:43 FiO2 Intake & Output 10/08/23 10/09/23 10/09/23 18:59 06:59 18:59 Weight 73.482 kg Other: Voiding Method Toilet Toilet # Voids 7 1 1 - Exam GENERAL: The patient is alert and oriented x3, not in any acute distress. Well developed, well nourished. -HEENT: Pupils are round and equally reacting to light. EOMI. No scleral icterus. No conjunctival pallor. Normocephalic, atraumatic. No pharyngeal erythema. No thyromegaly. Left ear wound, and infection CARDIOVASCULAR: S1 and S2 present. No murmurs, rubs, or gallops. PULMONARY: Chest is clear to auscultation, no wheezing , no crackles. ABDOMEN: Soft, nontender, nondistended, normoactive bowel sounds. No palpable organomegaly. MUSCULOSKELETAL: No joint swelling or deformity. -EXTREMITIES: No cyanosis, clubbing, or pedal edema. right leg wound, healing NEUROLOGICAL: Gross neurological examination did not reveal any focal deficits. SKIN: No rashes. no petechiae. - Labs CBC & Chem 7: 10/09/23 03:40 10/09/23 03:40 Labs: Abnormal Lab Results - Last 24 Hours (Table) 10/09/23 10/09/23 Range/Units 03:40 03:40 RDW 14.8 H (11.5-14.5) % Lymphocytes # 0.61 L (0.90-5.00) X 10*3/uL Anion Gap 12.10 H (4.00-12.00) mmol/L Est GFR (CKD-EPI) 55 L (>=60) Assessment and Plan Assessment: Syncope most likely secondary to orthostatic hypotension left ear wound and infection , cellulitis Recent history of UTI and reactive gastroenteritis which might contributed to her dehydration and hypovolemia right leg brusie secondary to recent fall Hypovolemic hyponatremia, mild Dehydration secondary to above Right leg wound Left ear wound Generalized weakness secondary to above, improving Fall at home CKD stage III Plan: pt recieved iv hydration ordered compression stocking cardiology consult wound consult for her left ear ultrasound of the right leg reviewed, negative fir acute dvt on doxycycline started 10/08 Monitor labs and vitals Labs and medication were reviewed.. Continue same treatment. Continue with symptomatic treatment. Resume home medication. Monitor labs and vitals. DVT and GI prophylaxis. Further recommendations as per clinical course of the patient DVT prophylaxis: Subcutaneous heparin GI Prophylaxis: Pepcid PT/OT: Pending Prognosis is guarded
[2023-10-10 09:47] LABS: Basophils % (A) 1 %; Eosinophils # (A) 0.1 k/uL (0-0.7); Eosinophils % (A) 1 %; HCT 41.7 % (34.0-46.0); HGB 13.7 gm/dL (11.4-16.0); Lymphocytes # (A) 0.6 k/uL (1.0-4.8); Lymphocytes % (A) 10 %; MCH 30.9 pg (25.0-35.0); MCHC 32.9 g/dL (31.0-37.0); MCV 94.1 fL (80.0-100.0); Mean Platelet Volume 7.2; Monocytes # (A) 0.4 k/uL (0-1.0); Monocytes % (A) 6 %; Neutrophils # (A) 5.1 k/uL (1.3-7.7); Neutrophils % (A) 81 %; Platelet Count 227 k/uL (150-450); RBC 4.43 m/uL (3.80-5.40); RDW 14.7 % (11.5-15.5); WBC 6.3 k/uL (3.8-10.6)
[2023-10-10 10:02] LABS: ALT 13 U/L (4-34); AST 21 U/L (14-36); African American GFR (CKD) 64 (>60 ml/min/1.73 sqM); Albumin 3.6 g/dL (3.5-5.0); Albumin/Globulin Ratio 1.8; Alkaline Phosphatase 59 U/L (38-126); Anion Gap 8 mmol/L; Bilirubin,Unconjugated 0.7 mg/dL (0.0-1.1); Blood Urea Nitrogen 19 mg/dL (7-17); Calcium 9.2 mg/dL (8.4-10.2); Carbon Dioxide 21 mmol/L (22-30); Chloride 106 mmol/L (98-107); Glucose 105 mg/dL (74-99); Magnesium 1.7 mg/dL (1.6-2.3); Non-African American GFR(CKD) 56 (>60 ml/min/1.73 sqM); Potassium 3.2 mmol/L (3.5-5.1); Sodium 135 mmol/L (137-145); Total Bilirubin 1.1 mg/dL (0.2-1.3); Total Protein 5.6 g/dL (6.3-8.2)
--- NOTE | 2023-10-10 12:14 | P.CRDCN ---
History of Present Illness History of present illness: HISTORY OF PRESENT ILLNESS: This is a 88-year-old female with a past medical history significant for coronary artery disease with previous stenting, hyperlipidemia, and former nicotine dependence. Patient follows in the office with Dr. Aguero. We have been asked to see the patient in consultation for syncope. Patient examined at the bedside. Patient was admitted to the hospital after having a syncopal episode. She currently denies chest pain or pressure. Denies SOB. She currently denies dizziness or lightheadedness. At the time of examination, there is no EKG performed and the patient is also not on telemetry monitoring. REVIEW OF SYSTEMS: At the time of my exam: CONSTITUTIONAL: Denies fever or chills. HEENT: Denies blurred vision, vision changes, or eye pain. Denies hemoptysis CARDIOVASCULAR: Denies chest pain. Denies orthopnea. Denies PND. Denies palpitations RESPIRATORY: Denies shortness of breath. GASTROINTESTINAL: Denies abdominal pain. Denies nausea or vomiting. HEMATOLOGIC: Denies bleeding disorders. GENITOURINARY: Denies any blood in urine. SKIN: Denies pruitis. Denies rash. PHYSICAL EXAM: VITAL SIGNS: Reviewed. GENERAL: Well-developed in no acute distress. HEENT: Head is normocephalic. Pupils are equal, round. Sclerae anicteric. Mucous membranes of the mouth are moist. Neck supple. No JVD or thyromegaly LUNGS: Respirations even and unlabored. Lungs essentially clear to auscultation bilaterally. HEART: Regular rate and rhythm. S1 and S2 heard. ABDOMEN: Soft. Nondistended. Nontender. EXTREMITIES: Normal range of motion. No clubbing or cyanosis. Peripheral pulses intact. No lower extremity edema NEUROLOGIC: Awake and alert. Oriented x 3. ASSESSMENT: Syncope, etiology unclear, may be secondary to orthostatic hypotension History of orthostatic hypotension Coronary artery disease with previous stenting Valvular heart disease including mild to moderate MR and mild to moderate AR Hypertension Hyperlipidemia PLAN: Obtain 2D echo to assess cardiac structure and function Obtain EKG Initiate telemetry monitoring to assess for any arrhythmias Discontinue amlodipine. Begin losartan 25 mg at night for supine hypertension Further recommendations pending patient course Nurse practitioner note has been reviewed by physician. Signing provider agrees with the documented findings, assessment, and plan of care documented by PEACH GROWER as a scribe. Past Medical History Past Medical History: Coronary Artery Disease (CAD), Hyperlipidemia, Hypertension, Pulmonary Embolus (PE) Additional Past Medical History / Comment(s): anxiety , PHLEBITIS AND PE 25 YEARS AGO, SHINGLES 2 YEARS AGO History of Any Multi-Drug Resistant Organisms: None Reported Past Surgical History: Adenoidectomy, Bladder Surgery, Hysterectomy, Tonsillectomy Additional Past Surgical History / Comment(s): Stent placement 2014.IMPLANTED TOOTH(METAL POST) Past Anesthesia/Blood Transfusion Reactions: No Reported Reaction Date of Last Stent Placement:: 2014 Past Psychological History: Anxiety Smoking Status: Never smoker Past Alcohol Use History: Occasional Additional Past Alcohol Use History / Comment(s): SMOKED OFF AND ON QUIT 1999 HAD SMOKED UP TO 3/4 PPD Past Drug Use History: None Reported - Past Family History Father Family Medical History: Myocardial Infarction ([place]) Additional Family Medical History / Comment(s): AGE 59 FROM 3RD NH Mother Additional Family Medical History / Comment(s): AGE 57 CEREBRAL ANEURYSM Medications and Allergies Home Medications Medication Instructions Recorded Confirmed Type Acetaminophen Tab [Tylenol Tab] 500 mg PO DAILY 10/06/23 10/07/23 History Aspirin EC [Ecotrin Low Dose] 81 mg PO DAILY 10/06/23 10/07/23 History Atorvastatin [Lipitor] 40 mg PO HS 10/06/23 10/07/23 History Ciprofloxacin HCl 500 mg PO BID #14 tab 10/06/23 10/07/23 Rx Citalopram Hydrobromide [CeleXA] 20 mg PO DAILY 10/06/23 10/07/23 History L.acidoph,Paracasei, B.lactis 1 cap PO DAILY 10/06/23 10/07/23 History [Probiotic] Midodrine HCl [ProAmantine] 2.5 mg PO TID 10/06/23 10/07/23 History Psyllium Husk [Fiber Capsule] 1.2 gm PO DAILY 10/06/23 10/07/23 History oxyBUTYnin chloride [Ditropan] 5 mg PO DAILY 10/06/23 10/07/23 History dexAMETHasone [Decadron Elixir] 0.5 mg PO DIRECTED 10/07/23 10/07/23 History Allergies Allergy/AdvReac Type Severity Reaction Status Date / Time Penicillins Allergy Rash/Hives Verified 10/07/23 17:51 Physical Exam Vitals: Vital Signs Temp Pulse Pulse Pulse Resp BP BP 10/10/23 06:55 97.7 F 77 16 10/10/23 06:37 10/10/23 01:46 98.4 F 73 173/73 10/09/23 21:35 65 162/78 10/09/23 20:00 18 10/09/23 19:35 179/86 10/09/23 19:15 97.8 F 72 181/99 10/09/23 13:48 97.5 F L 77 17 10/09/23 12:28 76 129/71 BP BP Pulse Ox 10/10/23 06:55 180/87 93 L 10/10/23 06:37 171/75 10/10/23 01:46 94 L 10/09/23 21:35 10/09/23 20:00 10/09/23 19:35 10/09/23 19:15 94 L 10/09/23 13:48 109/68 93 L 10/09/23 12:28 Intake and Output 10/09/23 10/10/23 10/10/23 22:59 06:59 14:59 Output Total 800 Balance -800 Output: Urine 800 Other: Voiding Method Diaper External Catheter # Voids 2 Results 10/10/23 09:18 10/10/23 09:18 Cardiac Enzymes 10/10/23 Range/Units 09:18 AST 21 (14-36) U/L CBC 10/10/23 Range/Units 09:18 WBC 6.3 (3.8-10.6) k/uL RBC 4.43 (3.80-5.40) m/uL Hgb 13.7 (11.4-16.0) gm/dL Hct 41.7 (34.0-46.0) % Plt Count 227 (150-450) k/uL Comprehensive Metabolic Panel 10/10/23 Range/Units 09:18 Sodium 135 L (137-145) mmol/L Potassium 3.2 L (3.5-5.1) mmol/L Chloride 106 (98-107) mmol/L Carbon Dioxide 21 L (22-30) mmol/L BUN 19 H (7-17) mg/dL Creatinine 0.93 (0.52-1.04) mg/dL Glucose 105 H (74-99) mg/dL Calcium 9.2 (8.4-10.2) mg/dL Unconjugated Bilirubin 0.7 (0.0-1.1) mg/dL AST 21 (14-36) U/L ALT 13 (4-34) U/L Alkaline Phosphatase 59 (38-126) U/L Total Protein 5.6 L (6.3-8.2) g/dL Albumin 3.6 (3.5-5.0) g/dL Current Medications Generic Name Dose Route Start Last Admin Trade Name Freq PRN Reason Stop Dose Admin Acetaminophen 650 mg 10/07/23 16:49 Acetaminophen Tab 325 Mg Tab PO Q6HR PRN Mild Pain or Fever > 100.5 Aspirin 81 mg 10/08/23 09:00 10/10/23 10:03 Aspirin 81 Mg PO 81 mg DAILY CATIE Administration Atorvastatin Calcium 40 mg 10/07/23 21:00 10/09/23 20:17 Atorvastatin 40 Mg Tab PO 40 mg HS CATIE Administration Doxycycline Hyclate 100 mg/ 100 mls @ 100 mls/hr 10/09/23 16:00 10/10/23 03:06 Sodium Chloride IVPB 100 mls/hr Q12H CATIE Administration Protocol Lactobacillus Acidophilus 1 each 10/08/23 09:00 10/10/23 10:02 Lactobacillus Acidophilus/Pect 1 Each Capsule PO 1 each DAILY CATIE Administration Losartan Potassium 25 mg 10/10/23 21:00 Losartan 50 Mg Tab PO HS CATIE Midodrine 5 mg 10/08/23 12:30 10/10/23 06:38 Midodrine 5 Mg Tab PO Not Given AC-TID CATIE Naloxone HCl 0.2 mg 10/07/23 16:49 Naloxone 0.4 Mg/Ml 1 Ml Vial IV Q2M PRN Opioid Reversal Oxybutynin Chloride 5 mg 10/08/23 09:00 10/10/23 10:03 Oxybutynin Chloride 5 Mg Tab PO 5 mg DAILY CATIE Administration Psyllium Hydrophilic Mucilloid 6 gm 10/08/23 09:00 10/10/23 10:02 Psyllium Husk 100% 6 Gm Packet PO 6 gm DAILY CATIE Administration Intake and Output 10/09/23 10/10/23 10/10/23 22:59 06:59 14:59 Output Total 800 Balance -800 Output: Urine 800 Other: Voiding Method Diaper External Catheter # Voids 2 10/10/23 09:18 10/10/23 09:18
[2023-10-10] MEDS: LOSARTAN 50 MG TAB PO SCH (21:15)
[2023-10-11] MEDS ORDERED: Potassium Replacement Protocol 1 EACH MISC MISCELLANE PRN (01:35)
[2023-10-11] MEDS: POTASSIUM CHLORIDE ER 20 MEQ TAB.ER PO SCH (02:48)
[2023-10-11 08:43] LABS: Basophils # (A) 0.03 X 10*3/uL (0.00-0.10); Basophils % (A) 0.6 %; Eosinophils # (A) 0.12 X 10*3/uL (0.04-0.35); Eosinophils % (A) 2.3 %; HCT 38.6 % (37.2-46.3); HGB 12.7 g/dL (12.0-15.0); Lymphocytes # (A) 0.58 X 10*3/uL (0.90-5.00); Lymphocytes % (A) 10.9 %; MCH 30.5 pg (27.0-32.0); MCHC 32.9 g/dL (32.0-37.0); MCV 92.6 FL (80.0-97.0); Mean Platelet Volume 10.4 FL (9.5-12.2); Monocytes # (A) 0.45 X 10*3/uL (0.20-1.00); Monocytes % (A) 8.5 %; NRBC Per 100 WBC 0 X 10*3/uL (0.00-0.01); Neutrophils # (A) 4.12 X 10*3/uL (1.80-7.70); Neutrophils % (A) 77.3 %; Platelet Count 191 X 10*3/uL (140-440); RBC 4.17 X 10*6/uL (4.10-5.20); RDW 15.2 % (11.5-14.5); WBC 5.32 X 10*3/uL (4.50-10.00)
[2023-10-11 09:01] LABS: BUN/Creat Ratio 22.22 Ratio (12.00-20.00); Calcium 8.7 mg/dL (8.7-10.3); Carbon Dioxide 21.4 mmol/L (21.6-31.8); Chloride 104 mmol/L (96-109); Glucose 94 mg/dL (70-110); Potassium 3.4 mmol/L (3.5-5.5); Sodium 138 mmol/L (135-145)
--- NOTE | 2023-10-11 11:37 | P.CONS ---
History of Present Illness - Reason for Consult Consult date: 10/11/23 wound care - History of Present Illness This is an 88-year-old patient being seen for a nonhealing ulceration to the left ear and right leg. Patient had a fall resulting in an abrasion to the left ear sutures are in place at this time. The ear still shows ecchymosis. However the sutures are intact and well-approximated. Patient also has a ulceration to the right anterior lower extremity measuring approximately 2 x 3.5 x 0.1 cm ecchymosis noted to the site. Ulceration has fat layer exposure. Eschar noted. Patient does not know how the ulceration started. Patient's past medical history significant for chronic kidney disease stage III. Review Of Systems: Constitutional: No fever, no chills, no night sweats. No weight change. No weakness, fatigue or lethargy. No daytime sleepiness. Integumentary:reports wounds, no lesions. No rash or pruritus. No unusual bruising. No change in hair or nails. Physical exam: General Appearance: Alert, cooperative, no distress, appears stated age. Skin: See HPI all other Skin color, texture, tugor normal, no rashes or lesions. Neurologic: Alert oriented x3 Assessment: 1. Nonhealing ulceration with fat layer exposed right lower extremity Plan: 1. Apply honey gel and bordered foam to the site. Continue with compression stockings. Thank you for the consultation any questions please contact the wound care center DNP note has been reviewed and discussed with Dr. Damon and the impression and plan of care has been directed as dictated. Past Medical History Past Medical History: Coronary Artery Disease (CAD), Hyperlipidemia, Hypertension, Pulmonary Embolus (PE) Additional Past Medical History / Comment(s): anxiety , PHLEBITIS AND PE 25 YEARS AGO, SHINGLES 2 YEARS AGO History of Any Multi-Drug Resistant Organisms: None Reported Past Surgical History: Adenoidectomy, Bladder Surgery, Hysterectomy, Tonsillectomy Additional Past Surgical History / Comment(s): Stent placement 2014.IMPLANTED TOOTH(METAL POST) Past Anesthesia/Blood Transfusion Reactions: No Reported Reaction Date of Last Stent Placement:: 2014 Past Psychological History: Anxiety Smoking Status: Never smoker Past Alcohol Use History: Occasional Additional Past Alcohol Use History / Comment(s): SMOKED OFF AND ON QUIT 1999 HAD SMOKED UP TO 3/4 PPD Past Drug Use History: None Reported - Past Family History Father Family Medical History: Myocardial Infarction ([place]) Additional Family Medical History / Comment(s): AGE 59 FROM 3RD [place] Mother Additional Family Medical History / Comment(s): AGE 57 CEREBRAL ANEURYSM Medications and Allergies Home Medications Medication Instructions Recorded Confirmed Type Acetaminophen Tab [Tylenol Tab] 500 mg PO DAILY 10/06/23 10/07/23 History Aspirin EC [Ecotrin Low Dose] 81 mg PO DAILY 10/06/23 10/07/23 History Atorvastatin [Lipitor] 40 mg PO HS 10/06/23 10/07/23 History Ciprofloxacin HCl 500 mg PO BID #14 tab 10/06/23 10/07/23 Rx Citalopram Hydrobromide [CeleXA] 20 mg PO DAILY 10/06/23 10/07/23 History L.acidoph,Paracasei, B.lactis 1 cap PO DAILY 10/06/23 10/07/23 History [Probiotic] Midodrine HCl [ProAmantine] 2.5 mg PO TID 10/06/23 10/07/23 History Psyllium Husk [Fiber Capsule] 1.2 gm PO DAILY 10/06/23 10/07/23 History oxyBUTYnin chloride [Ditropan] 5 mg PO DAILY 10/06/23 10/07/23 History dexAMETHasone [Decadron Elixir] 0.5 mg PO DIRECTED 10/07/23 10/07/23 History Allergies Allergy/AdvReac Type Severity Reaction Status Date / Time Penicillins Allergy Rash/Hives Verified 10/07/23 17:51 Physical Exam Vitals: Vital Signs Temp Pulse Resp BP BP BP Pulse Ox 10/11/23 07:07 97.8 F 66 18 167/80 93 L 10/11/23 06:42 137/81 166/90 10/11/23 01:47 98.2 F 56 L 18 148/79 94 L 10/10/23 19:50 98.1 F 60 18 160/71 94 L 10/10/23 17:50 64 136/77 10/10/23 13:40 97.7 F 60 16 120/71 95 Intake and Output 10/10/23 10/11/23 10/11/23 22:59 06:59 14:59 Intake Total 500 Output Total 450 500 Balance -450 0 Intake: Intake, IV Titration 100 Amount Doxycycline 100 mg In 100 Sodium Chloride 0.9% 100 ml @ 100 mls/hr IVPB Q12H [facility] Rx#:[id number] Oral 400 Output: Urine 450 500 Other: Voiding Method Diaper External Catheter # Voids 1 1 Results CBC & Chem 7: 10/11/23 03:39 10/11/23 03:39 Labs: Abnormal Lab Results - Last 24 Hours (Table) 10/11/23 10/11/23 Range/Units 03:39 03:39 RDW 15.2 H (11.5-14.5) % Lymphocytes # 0.58 L (0.90-5.00) X 10*3/uL Potassium 3.4 L (3.5-5.5) mmol/L Carbon Dioxide 21.4 L (21.6-31.8) mmol/L Anion Gap 12.60 H (4.00-12.00) mmol/L BUN/Creatinine Ratio 22.22 H (12.00-20.00) Ratio Microbiology - Last 24 Hours (Table) 10/09/23 18:44 Urine Culture - Final Urine,Voided Assessment and Plan (1) Non-pressure chronic ulcer of other part of right lower leg with fat layer exposed Current Visit: Yes Status: Acute Code(s): L97.812 - NON-PRS CHRONIC ULCER OTH PRT R LOW LEG W FAT LAYER EXPOSED SNOMED Code(s): 29983675125633607
[2023-10-11] MEDS ORDERED: MIDODRINE 5 MG TAB PO PRN (11:50)
--- NOTE | 2023-10-11 11:51 | P.PN ---
Subjective HISTORY OF PRESENT ILLNESS: This is a 88-year-old female with a past medical history significant for coronary artery disease with previous stenting, hyperlipidemia, and former nicotine dependence. Patient follows in the office with Dr. Aguero. We have been asked to see the patient in consultation for syncope. Patient examined at the bedside. Patient was admitted to the hospital after having a syncopal episode. She currently denies chest pain or pressure. Denies SOB. She currently denies dizziness or lightheadedness. At the time of examination, there is no EKG performed and the patient is also not on telemetry monitoring. 10/11/2023 Patient examined this morning the bedside. Patient currently denies chest pain or pressure. She denies shortness of breath. She denies any dizziness or lightheadedness. Patient's blood pressures are better controlled today. Her midodrine has been held secondary to patient's blood pressures being on the higher side. PHYSICAL EXAM: VITAL SIGNS: Reviewed. GENERAL: Well-developed in no acute distress. HEENT: Head is normocephalic. Pupils are equal, round. Sclerae anicteric. Mucous membranes of the mouth are moist. Neck supple. No JVD or thyromegaly LUNGS: Respirations even and unlabored. Lungs essentially clear to auscultation bilaterally. HEART: Regular rate and rhythm. S1 and S2 heard. ABDOMEN: Soft. Nondistended. Nontender. EXTREMITIES: Normal range of motion. No clubbing or cyanosis. Peripheral pulses intact. No lower extremity edema NEUROLOGIC: Awake and alert. Oriented x 3. ASSESSMENT: Syncope, etiology unclear, may be secondary to orthostatic hypotension History of orthostatic hypotension Coronary artery disease with previous stenting Valvular heart disease including mild to moderate MR and mild to moderate AR Hypertension Hyperlipidemia PLAN: Continue losartan 25 mg at night for supine hypertension Change midodrine to PRN for SBP less than 90 Patient is currently stable from a cardiac standpoint with no further inpatient recommendations We will sign off. Please reconsult if needed. Nurse practitioner note has been reviewed by physician. Signing provider agrees with the documented findings, assessment, and plan of care documented by [employer] as a scribe. Objective - Vital Signs Vital signs: Vital Signs Temp 97.8 F 10/11/23 07:07 Pulse 66 10/11/23 07:07 Resp 18 10/11/23 07:07 BP 167/80 10/11/23 07:07 Pulse Ox 93 L 10/11/23 07:07 FiO2 Intake & Output 10/10/23 10/11/23 10/11/23 18:59 06:59 18:59 Intake Total 500 Output Total 450 500 Balance -450 0 Intake: Intake, IV Titration 100 Amount Doxycycline 100 mg In 100 Sodium Chloride 0.9% 100 ml @ 100 mls/hr IVPB Q12H [facility] Rx#:[id number] Oral 400 Output: Urine 450 500 Other: Voiding Method Diaper External Catheter # Voids 1 1 - Labs CBC & Chem 7: 10/11/23 03:39 10/11/23 03:39 Labs: Abnormal Lab Results - Last 24 Hours (Table) 10/11/23 10/11/23 Range/Units 03:39 03:39 RDW 15.2 H (11.5-14.5) % Lymphocytes # 0.58 L (0.90-5.00) X 10*3/uL Potassium 3.4 L (3.5-5.5) mmol/L Carbon Dioxide 21.4 L (21.6-31.8) mmol/L Anion Gap 12.60 H (4.00-12.00) mmol/L BUN/Creatinine Ratio 22.22 H (12.00-20.00) Ratio Microbiology - Last 24 Hours (Table) 10/09/23 18:44 Urine Culture - Final Urine,Voided
--- NOTE | 2023-10-11 15:21 | CA ---
Transthoracic Echo Report Name: Zuleima Her Age: 88 Gender: F : 1935 Exam Date: 10/11/2023 09:11 Exam Location: [facility] Ht (in): 66 Wt (lb): 162 Ordering Physician: Anahi Gonzalez Attending/Referring Phys: [id number], Carlos Region Manager Rachael Díaz RDCS Procedure CPT: Indications: LV function, syncope Cardiac Hx: Technical Quality: Technically difficult study Contrast 1: Definity Total Dose (mL): 2 Contrast 2: Total Dose (mL): MEASUREMENTS (Male / Female) Normal Values 2D ECHO LV Diastolic Diameter PLAX 5.4 cm 4.2 - 5.9 / 3.9 - 5.3 cm LV Systolic Diameter PLAX 4.2 cm IVS Diastolic Thickness 1.6 cm 0.6 - 1.0 / 0.6 - 0.9 cm LVPW Diastolic Thickness 1.7 cm 0.6 - 1.0 / 0.6 - 0.9 cm LV Relative Wall Thickness 0.6 RV Internal Dim ED PLAX 3.4 cm LVOT Diameter 2.4 cm LA Systolic Diameter LX 3.8 cm 3.0 - 4.0 / 2.7 - 3.8 cm LA Volume 77.7 cm??? 18 - 58 / 22 - 52 cm??? LA Volume Index 41.7 cm???/m??? 16 - 28 cm???/m??? M-MODE Aortic Root Diameter MM 3.3 cm AV Cusp Separation MM 1.8 cm DOPPLER AV Peak Velocity 164.6 cm/s AV Peak Gradient 10.8 mmHg AV Mean Velocity 98.2 cm/s AV Mean Gradient 4.7 mmHg AV Velocity Time Integral 29.2 cm AI Peak Velocity 349.6 cm/s AI Peak Gradient 48.9 mmHg AI Pressure Half Time 992.6 ms LVOT Peak Velocity 118.8 cm/s LVOT Peak Gradient 5.6 mmHg LVOT Velocity Time Integral 22.3 cm LVOT Stroke Volume 98.4 cm??? LVOT Stroke Volume Index 53.8 ml/m??? LVOT Cardiac Index 4066.5 cm???/min???m??? AV Area Cont Eq vti 3.4 cm??? AV Area Cont Eq pk 3.2 cm??? MV Area PHT 2.7 cm??? Mitral E Point Velocity 59.4 cm/s Mitral A Point Velocity 97.7 cm/s Mitral E to A Ratio 0.6 MV Deceleration Time 282.4 ms TR Peak Velocity 253.3 cm/s TR Peak Gradient 25.7 mmHg Right Ventricular Systolic Press 29.8 mmHg FINDINGS Left Ventricle Left ventricular ejection fraction is estimated at 45-50 %. Moderately increased septal wall thickness. Severely increased posterior wall thickness. Mildly increased left ventricular diastolic diameter. Basel septal hypokinesis. Right Ventricle Mild right ventricular dilatation. Right ventricular systolic pressure within normal limits. Right Atrium Normal right atrial size. No right atrial thrombus or mass seen. Left Atrium Severely increased left atrial volume. Mildly increased left atrial area. No left atrial thrombus or mass present. Mitral Valve Mitral valve thickened. Mild mitral annular calcification. Trace to mild mitral regurgitation. Aortic Valve Trileaflet aortic valve. Thickened aortic valve without stenosis. Trace to mild aortic regurgitation. Tricuspid Valve Structurally normal tricuspid valve. Mild tricuspid regurgitation. Pulmonic Valve Structurally normal pulmonic valve. Trace pulmonic regurgitation. Pericardium No pericardial effusion. No pleural effusion. Aorta Normal size aortic root and proximal ascending aorta. CONCLUSIONS Diagnosis: Recurrent syncope Reduced LV systolic function with a septal/inferior septal thinning of the wall and hypokinesis Mildly enlarged right ventricle Severe left atrial enlargement Previewed by: Dr. Ck Bell MD (Electronically Signed) Final Date: 11 October 2023 15:20
[2023-10-12 10:48] LABS: BUN/Creat Ratio 21.33 Ratio (12.00-20.00); Blood Urea Nitrogen 19.2 mg/dL (9.0-27.0); Calcium 8.9 mg/dL (8.7-10.3); Carbon Dioxide 21.6 mmol/L (21.6-31.8); Chloride 106 mmol/L (96-109); Glucose 91 mg/dL (70-110); Potassium 3.8 mmol/L (3.5-5.5); Sodium 139 mmol/L (135-145)
--- NOTE | 2023-10-13 00:35 | P.PN ---
Subjective Progress Note Date: 10/10/23 This is a pleasant 88 years old female with past medical history of multiple medical problems including hypertension, hyperlipidemia, pulmonary embolism, anxiety. Presents because of falling Patient states that yesterday she was rushing to open the door for workers to get home and start working through her garage. As she was doing that she felt dizzy and passed out Patient thinks is very weak and she woke up right away and she was sent to the hospital Denies chest pain or dyspnea. No abdominal pain vomiting diarrhea, no urinary complaint. No headache dizziness weakness numbness She denies smoking alcohol or illicit drugs Patient states that few days ago she has diarrhea and low appetite but now that is resolved, her appetite back and her diarrhea stopped 2 weeks ago she was treated for UTI with Cipro which is resolved now and she is not taking Cipro anymore On admission she has positive orthostasis She is afebrile and rest of vitals are stable She has mild hyponatremia 132, BUN elevated 24 creatinine within the reference ranges 0.9 CBC and rest of BMP and liver enzymes were unremarkable Patient's wants to be DNR 10/10/2023 Patient is currently lying in the bed. Awake alert and oriented. No complaints of chest pain or shortness of breath. Still complains of dizziness when she get s up. Patient was seen by cardiology and discontinued amlodipine and started on losartan at night for supine hypertension. 2D echocardiogram was ordered. Otherwise patient is afebrile. No cough or sputum production. Laboratory data showed WBC 6.3 hemoglobin 13.7 and platelets 227 sodium 134 potassium 3.2 chloride 106 bicarb is 21 BUN 19 and creatinine 0.93 and blood sugar 105. Current medications reviewed. Objective - Vital Signs Vital signs: Vital Signs Temp 97.7 F 10/10/23 06:55 Pulse 77 10/10/23 06:55 Resp 16 10/10/23 06:55 BP 180/87 10/10/23 06:55 Pulse Ox 93 L 10/10/23 06:55 FiO2 Intake & Output 10/09/23 10/10/23 10/10/23 18:59 06:59 18:59 Output Total 800 Balance -800 Output: Urine 800 Other: Voiding Method Toilet Diaper External Catheter # Voids 2 - Exam - Exam GENERAL: The patient is alert and oriented x3, not in any acute distress. Well developed, well nourished. -HEENT: Pupils are round and equally reacting to light. EOMI. No scleral icterus. No conjunctival pallor. Normocephalic, atraumatic. No pharyngeal erythema. No thyromegaly. Left ear wound, and infection CARDIOVASCULAR: S1 and S2 present. No murmurs, rubs, or gallops. PULMONARY: Chest is clear to auscultation, no wheezing , no crackles. ABDOMEN: Soft, nontender, nondistended, normoactive bowel sounds. No palpable organomegaly. MUSCULOSKELETAL: No joint swelling or deformity. -EXTREMITIES: No cyanosis, clubbing, or pedal edema. right leg wound, healing NEUROLOGICAL: Gross neurological examination did not reveal any focal deficits. SKIN: No rashes. no petechiae. - Labs CBC & Chem 7: 10/11/23 03:39 10/12/23 06:02 Labs: Abnormal Lab Results - Last 24 Hours (Table) 10/09/23 10/10/23 10/10/23 Range/Units 18:44 09:18 09:18 Lymphocytes # 0.6 L (1.0-4.8) k/uL Sodium 135 L (137-145) mmol/L Potassium 3.2 L (3.5-5.1) mmol/L Carbon Dioxide 21 L (22-30) mmol/L BUN 19 H (7-17) mg/dL Glucose 105 H (74-99) mg/dL Total Protein 5.6 L (6.3-8.2) g/dL Ur Leukocyte Esterase Large H (Negative) Urine WBC 22 H (0-5) /hpf Assessment and Plan Assessment: Syncope most likely secondary to orthostatic hypotension left ear wound and infection , cellulitis Recent history of UTI and reactive gastroenteritis which might contributed to her dehydration and hypovolemia right leg brusie secondary to recent fall Hypovolemic hyponatremia, mild Dehydration secondary to above Right leg wound Left ear wound Generalized weakness secondary to above, improving Fall at home CKD stage III Plan: pt recieved iv hydration. Patient was started on losartan for supine hypertension. Norvasc has been discontinued. Patient was seen by cardiology. 2D echocardiogram was ordered. Continue with compression stocking wound consult for her left ear ultrasound of the right leg reviewed, negative fir acute dvt on doxycycline started 10/08 Monitor labs and vitals Labs and medication were reviewed.. Monitor labs and vitals. DVT and GI prophylaxis. DVT prophylaxis: Subcutaneous heparin GI Prophylaxis: Pepcid PT/OT: Pending Prognosis is guarded Time with Patient: Greater than 30
--- NOTE | 2023-10-13 00:57 | P.PN ---
Subjective Progress Note Date: 10/11/23 This is a pleasant 88 years old female with past medical history of multiple medical problems including hypertension, hyperlipidemia, pulmonary embolism, anxiety. Presents because of falling Patient states that yesterday she was rushing to open the door for workers to get home and start working through her garage. As she was doing that she felt dizzy and passed out Patient thinks is very weak and she woke up right away and she was sent to the hospital Denies chest pain or dyspnea. No abdominal pain vomiting diarrhea, no urinary complaint. No headache dizziness weakness numbness She denies smoking alcohol or illicit drugs Patient states that few days ago she has diarrhea and low appetite but now that is resolved, her appetite back and her diarrhea stopped 2 weeks ago she was treated for UTI with Cipro which is resolved now and she is not taking Cipro anymore On admission she has positive orthostasis She is afebrile and rest of vitals are stable She has mild hyponatremia 132, BUN elevated 24 creatinine within the reference ranges 0.9 CBC and rest of BMP and liver enzymes were unremarkable Patient's wants to be DNR 10/10/2023 Patient is currently lying in the bed. Awake alert and oriented. No complaints of chest pain or shortness of breath. Still complains of dizziness when she get s up. Patient was seen by cardiology and discontinued amlodipine and started on losartan at night for supine hypertension. 2D echocardiogram was ordered. Otherwise patient is afebrile. No cough or sputum production. Laboratory data showed WBC 6.3 hemoglobin 13.7 and platelets 227 sodium 134 potassium 3.2 chloride 106 bicarb is 21 BUN 19 and creatinine 0.93 and blood sugar 105. 10/11/2023 Patient is resting in the bed. Awake alert and oriented x 3. Blood pressure is in 140s this morning. Later this afternoon blood pressure went up to 1 7479. Patient is being continued on losartan 25 mg at bedtime. Patient is also on midodrine 5 mg p.o. 3 times daily as needed. Cardiology is on board. 2D echocardiogram showed reduced LV systolic function with septal/inferior septal thinning of the wall. And hypokinesis. Mildly enlarged right ventricle. Severe left atrial enlargement. Ejection fraction 45 to 50%. Laboratory data showed sodium 138 potassium 3.4 chloride 104 bicarb is 21.4 BUN 20 and creatinine 0.9 and blood sugar is 62. Calcium 8.7. U urine culture showed no growth. Current medications reviewed. Objective - Vital Signs Vital signs: Vital Signs Temp 98.0 F 10/11/23 19:56 Pulse 58 L 10/11/23 19:56 Resp 18 10/11/23 19:56 BP 175/79 10/11/23 19:56 Pulse Ox 95 10/11/23 19:56 FiO2 Intake & Output 10/11/23 10/11/23 10/12/23 06:59 18:59 06:59 Intake Total 500 Output Total 500 Balance 0 Intake: Intake, IV Titration 100 Amount Doxycycline 100 mg In 100 Sodium Chloride 0.9% 100 ml @ 100 mls/hr IVPB Q12H [facility] Rx#:[id number] Oral 400 Output: Urine 500 Other: Voiding Method Diaper External Catheter # Voids 1 3 1 - Exam - Exam GENERAL: The patient is alert and oriented x3, not in any acute distress. Well developed, well nourished. -HEENT: Pupils are round and equally reacting to light. EOMI. No scleral icterus. No conjunctival pallor. Normocephalic, atraumatic. No pharyngeal erythema. No thyromegaly. Left ear wound, and infection CARDIOVASCULAR: S1 and S2 present. No murmurs, rubs, or gallops. PULMONARY: Chest is clear to auscultation, no wheezing , no crackles. ABDOMEN: Soft, nontender, nondistended, normoactive bowel sounds. No palpable organomegaly. MUSCULOSKELETAL: No joint swelling or deformity. -EXTREMITIES: No cyanosis, clubbing, or pedal edema. right leg wound, healing NEUROLOGICAL: Gross neurological examination did not reveal any focal deficits. SKIN: No rashes. no petechiae. - Labs CBC & Chem 7: 10/11/23 03:39 10/12/23 06:02 Labs: Abnormal Lab Results - Last 24 Hours (Table) 10/11/23 10/11/23 Range/Units 03:39 03:39 RDW 15.2 H (11.5-14.5) % Lymphocytes # 0.58 L (0.90-5.00) X 10*3/uL Potassium 3.4 L (3.5-5.5) mmol/L Carbon Dioxide 21.4 L (21.6-31.8) mmol/L Anion Gap 12.60 H (4.00-12.00) mmol/L BUN/Creatinine Ratio 22.22 H (12.00-20.00) Ratio Microbiology - Last 24 Hours (Table) 10/09/23 18:44 Urine Culture - Final Urine,Voided Assessment and Plan Assessment: Syncope most likely secondary to orthostatic hypotension Uncontrolled hypertension left ear wound and infection , cellulitis Recent history of UTI and reactive gastroenteritis which might contributed to her dehydration and hypovolemia right leg brusie secondary to recent fall Hypovolemic hyponatremia, mild Dehydration secondary to above Right leg wound Left ear wound Generalized weakness secondary to above, improving Fall at home CKD stage III Plan: pt recieved iv hydration. Patient was started on losartan for supine hypertension. Norvasc has been discontinued. Patient was seen by cardiology. 2D echocardiogram report as above. Continue with compression stocking. Patient is orthostatic positive. wound consult for her left ear ultrasound of the right leg reviewed, negative fir acute dvt on doxycycline started 10/08 Monitor labs and vitals Labs and medication were reviewed.. Monitor labs and vitals. DVT and GI prophylaxis. DVT prophylaxis: Subcutaneous heparin GI Prophylaxis: Pepcid PT/OT: Pending Prognosis is guarded Time with Patient: Greater than 30
--- NOTE | 2023-10-13 01:01 | P.PN ---
Subjective Progress Note Date: 10/12/23 This is a pleasant 88 years old female with past medical history of multiple medical problems including hypertension, hyperlipidemia, pulmonary embolism, anxiety. Presents because of falling Patient states that yesterday she was rushing to open the door for workers to get home and start working through her garage. As she was doing that she felt dizzy and passed out Patient thinks is very weak and she woke up right away and she was sent to the hospital Denies chest pain or dyspnea. No abdominal pain vomiting diarrhea, no urinary complaint. No headache dizziness weakness numbness She denies smoking alcohol or illicit drugs Patient states that few days ago she has diarrhea and low appetite but now that is resolved, her appetite back and her diarrhea stopped 2 weeks ago she was treated for UTI with Cipro which is resolved now and she is not taking Cipro anymore On admission she has positive orthostasis She is afebrile and rest of vitals are stable She has mild hyponatremia 132, BUN elevated 24 creatinine within the reference ranges 0.9 CBC and rest of BMP and liver enzymes were unremarkable Patient's wants to be DNR 10/10/2023 Patient is currently lying in the bed. Awake alert and oriented. No complaints of chest pain or shortness of breath. Still complains of dizziness when she get s up. Patient was seen by cardiology and discontinued amlodipine and started on losartan at night for supine hypertension. 2D echocardiogram was ordered. Otherwise patient is afebrile. No cough or sputum production. Laboratory data showed WBC 6.3 hemoglobin 13.7 and platelets 227 sodium 134 potassium 3.2 chloride 106 bicarb is 21 BUN 19 and creatinine 0.93 and blood sugar 105. 10/11/2023 Patient is resting in the bed. Awake alert and oriented x 3. Blood pressure is in 140s this morning. Later this afternoon blood pressure went up to 1 7479. Patient is being continued on losartan 25 mg at bedtime. Patient is also on midodrine 5 mg p.o. 3 times daily as needed. Cardiology is on board. 2D echocardiogram showed reduced LV systolic function with septal/inferior septal thinning of the wall. And hypokinesis. Mildly enlarged right ventricle. Severe left atrial enlargement. Ejection fraction 45 to 50%. Laboratory data showed sodium 138 potassium 3.4 chloride 104 bicarb is 21.4 BUN 20 and creatinine 0.9 and blood sugar is 62. Calcium 8.7. U urine culture showed no growth. 10/12/2023 Patient is resting in the bed. Awake alert and oriented x 3. She complains of dizziness. Especially when she gets out of the bed. No complaints of chest pain or shortness of breath. Otherwise patient is orthostatically positive. Blood pressure is 54/38 with sitting position and standing blood pressure is 85/59. Supine blood pressure 113/34. Patient is on losartan 25 mg at bedtime. Laboratory data showed sodium 139 potassium 3.8 chloride 106 bicarb is 21.6 BUN 19.1 creatinine 0.9 and blood sugar 91. Current medications reviewed. Objective - Vital Signs Vital signs: Vital Signs Temp 97.7 F 10/12/23 19:47 Pulse 73 10/12/23 19:47 Resp 18 10/12/23 19:47 BP 126/76 10/12/23 19:47 Pulse Ox 95 10/12/23 20:34 FiO2 Intake & Output 10/12/23 10/12/23 10/13/23 06:59 18:59 06:59 Other: Voiding Method Toilet Toilet # Voids 1 1 - Exam - Exam GENERAL: The patient is alert and oriented x3, not in any acute distress. Well developed, well nourished. -HEENT: Pupils are round and equally reacting to light. EOMI. No scleral icterus. No conjunctival pallor. Normocephalic, atraumatic. No pharyngeal erythema. No thyromegaly. Left ear wound, and infection CARDIOVASCULAR: S1 and S2 present. No murmurs, rubs, or gallops. PULMONARY: Chest is clear to auscultation, no wheezing , no crackles. ABDOMEN: Soft, nontender, nondistended, normoactive bowel sounds. No palpable organomegaly. MUSCULOSKELETAL: No joint swelling or deformity. -EXTREMITIES: No cyanosis, clubbing, or pedal edema. right leg wound, healing NEUROLOGICAL: Gross neurological examination did not reveal any focal deficits. SKIN: No rashes. no petechiae. - Labs CBC & Chem 7: 10/11/23 03:39 10/12/23 06:02 Labs: Abnormal Lab Results - Last 24 Hours (Table) 10/12/23 Range/Units 06:02 BUN/Creatinine Ratio 21.33 H (12.00-20.00) Ratio Assessment and Plan Assessment: Syncope most likely secondary to orthostatic hypotension Uncontrolled hypertension left ear wound and infection , cellulitis Recent history of UTI and reactive gastroenteritis which might contributed to her dehydration and hypovolemia right leg brusie secondary to recent fall Hypovolemic hyponatremia, mild Dehydration secondary to above Right leg wound Left ear wound Generalized weakness secondary to above, improving Fall at home CKD stage III Plan: pt recieved iv hydration. Patient was started on losartan for supine hypertension. Norvasc has been discontinued. Patient was seen by cardiology. 2D echocardiogram report as above. Continue with compression stocking. Patient is orthostatic positive. wound consult for her left ear ultrasound of the right leg reviewed, negative fir acute dvt on doxycycline started 10/08 Monitor labs and vitals Labs and medication were reviewed.. Monitor labs and vitals. DVT and GI prophylaxis. DVT prophylaxis: Subcutaneous heparin GI Prophylaxis: Pepcid PT/OT: Pending Prognosis is guarded Time with Patient: Greater than 30
[2023-10-13] MEDS: SODIUM CHLORIDE 0.9% 1,000 ML IV SCH (02:33)
[2023-10-13 09:15] LABS: BUN/Creat Ratio 25.38 Ratio (12.00-20.00); Blood Urea Nitrogen 20.3 mg/dL (9.0-27.0); Carbon Dioxide 21.6 mmol/L (21.6-31.8); Chloride 106 mmol/L (96-109); Glucose 100 mg/dL (70-110); Potassium 3.7 mmol/L (3.5-5.5); Sodium 139 mmol/L (135-145)
[2023-10-14 08:32] LABS: Basophils # (A) 0.05 X 10*3/uL (0.00-0.10); Basophils % (A) 0.8 %; Eosinophils # (A) 0.15 X 10*3/uL (0.04-0.35); Eosinophils % (A) 2.4 %; HCT 39.4 % (37.2-46.3); HGB 12.9 g/dL (12.0-15.0); Lymphocytes # (A) 0.76 X 10*3/uL (0.90-5.00); MCH 30.4 pg (27.0-32.0); MCHC 32.7 g/dL (32.0-37.0); MCV 92.7 FL (80.0-97.0); Mean Platelet Volume 10.7 FL (9.5-12.2); Monocytes # (A) 0.58 X 10*3/uL (0.20-1.00); Monocytes % (A) 9.1 %; NRBC Per 100 WBC 0 X 10*3/uL (0.00-0.01); Neutrophils # (A) 4.78 X 10*3/uL (1.80-7.70); Neutrophils % (A) 75.4 %; Platelet Count 181 X 10*3/uL (140-440); RBC 4.25 X 10*6/uL (4.10-5.20); RDW 15.2 % (11.5-14.5); WBC 6.34 X 10*3/uL (4.50-10.00)
[2023-10-14 08:48] LABS: BUN/Creat Ratio 27.44 Ratio (12.00-20.00); Blood Urea Nitrogen 24.7 mg/dL (9.0-27.0); Carbon Dioxide 20.9 mmol/L (21.6-31.8); Chloride 106 mmol/L (96-109); Glucose 85 mg/dL (70-110); Potassium 3.9 mmol/L (3.5-5.5); Sodium 139 mmol/L (135-145)
[2023-10-14 08:49] LABS: Calcium 8.9 mg/dL (8.7-10.3)
[2023-10-14] MEDS: SODIUM CHLORIDE 0.9% 500 ML 500 ML IV ONE (12:53)
--- NOTE | 2023-10-15 01:28 | P.PN ---
Subjective Progress Note Date: 10/13/23 This is a pleasant 88 years old female with past medical history of multiple medical problems including hypertension, hyperlipidemia, pulmonary embolism, anxiety. Presents because of falling Patient states that yesterday she was rushing to open the door for workers to get home and start working through her garage. As she was doing that she felt dizzy and passed out Patient thinks is very weak and she woke up right away and she was sent to the hospital Denies chest pain or dyspnea. No abdominal pain vomiting diarrhea, no urinary complaint. No headache dizziness weakness numbness She denies smoking alcohol or illicit drugs Patient states that few days ago she has diarrhea and low appetite but now that is resolved, her appetite back and her diarrhea stopped 2 weeks ago she was treated for UTI with Cipro which is resolved now and she is not taking Cipro anymore On admission she has positive orthostasis She is afebrile and rest of vitals are stable She has mild hyponatremia 132, BUN elevated 24 creatinine within the reference ranges 0.9 CBC and rest of BMP and liver enzymes were unremarkable Patient's wants to be DNR 10/10/2023 Patient is currently lying in the bed. Awake alert and oriented. No complaints of chest pain or shortness of breath. Still complains of dizziness when she get s up. Patient was seen by cardiology and discontinued amlodipine and started on losartan at night for supine hypertension. 2D echocardiogram was ordered. Otherwise patient is afebrile. No cough or sputum production. Laboratory data showed WBC 6.3 hemoglobin 13.7 and platelets 227 sodium 134 potassium 3.2 chloride 106 bicarb is 21 BUN 19 and creatinine 0.93 and blood sugar 105. 10/11/2023 Patient is resting in the bed. Awake alert and oriented x 3. Blood pressure is in 140s this morning. Later this afternoon blood pressure went up to 1 7479. Patient is being continued on losartan 25 mg at bedtime. Patient is also on midodrine 5 mg p.o. 3 times daily as needed. Cardiology is on board. 2D echocardiogram showed reduced LV systolic function with septal/inferior septal thinning of the wall. And hypokinesis. Mildly enlarged right ventricle. Severe left atrial enlargement. Ejection fraction 45 to 50%. Laboratory data showed sodium 138 potassium 3.4 chloride 104 bicarb is 21.4 BUN 20 and creatinine 0.9 and blood sugar is 62. Calcium 8.7. U urine culture showed no growth. 10/12/2023 Patient is resting in the bed. Awake alert and oriented x 3. She complains of dizziness. Especially when she gets out of the bed. No complaints of chest pain or shortness of breath. Otherwise patient is orthostatically positive. Blood pressure is 54/38 with sitting position and standing blood pressure is 85/59. Supine blood pressure 113/34. Patient is on losartan 25 mg at bedtime. Laboratory data showed sodium 139 potassium 3.8 chloride 106 bicarb is 21.6 BUN 19.1 creatinine 0.9 and blood sugar 91. 10/13/2023 Patient is currently sitting in a chair. Awake alert and oriented x 3. Di zziness is better. Patient received IV hydration. Orthostatic vitals still positive. Blood pressure did improve otherwise. No complaints of chest pain or shortness of breath. No cough or sputum production. Laboratory pressure sodium 139 potassium 3.7 chloride 106 bicarb is 21.6 BUN 20.3 and creatinine 0.8. Patient is able to tolerate oral diet and appetite has been improving. Current medications reviewed. Objective - Vital Signs Vital signs: Vital Signs Temp 97.1 F L 10/13/23 20:14 Pulse 67 10/13/23 20:14 Resp 18 10/13/23 20:14 BP 137/79 10/13/23 20:14 Pulse Ox 98 10/13/23 20:14 FiO2 Intake & Output 10/13/23 10/13/23 10/14/23 06:59 18:59 06:59 Intake Total 700 Balance 700 Intake: Intake, IV Titration 700 Amount Doxycycline 100 mg In 100 Sodium Chloride 0.9% 100 ml @ 100 mls/hr IVPB Q12H [facility] Rx#:[id number] Sodium Chloride 0.9% 1, 600 000 ml @ 75 mls/hr IV . [id number] [facility] Rx#:[id number] Other: Voiding Method Toilet # Voids 4 1 1 # Bowel Movements 1 - Exam - Exam GENERAL: The patient is alert and oriented x3, not in any acute distress. Well developed, well nourished. -HEENT: Pupils are round and equally reacting to light. EOMI. No scleral icterus. No conjunctival pallor. Normocephalic, atraumatic. No pharyngeal erythema. No thyromegaly. Left ear wound, and infection CARDIOVASCULAR: S1 and S2 present. No murmurs, rubs, or gallops. PULMONARY: Chest is clear to auscultation, no wheezing , no crackles. ABDOMEN: Soft, nontender, nondistended, normoactive bowel sounds. No palpable organomegaly. MUSCULOSKELETAL: No joint swelling or deformity. -EXTREMITIES: No cyanosis, clubbing, or pedal edema. right leg wound, healing NEUROLOGICAL: Gross neurological examination did not reveal any focal deficits. SKIN: No rashes. no petechiae. - Labs CBC & Chem 7: 10/14/23 03:36 10/14/23 03:36 Labs: Abnormal Lab Results - Last 24 Hours (Table) 10/13/23 Range/Units 04:13 BUN/Creatinine Ratio 25.38 H (12.00-20.00) Ratio Assessment and Plan Assessment: Syncope most likely secondary to orthostatic hypotension Uncontrolled hypertension left ear wound and infection/cellulitis. Improved Recent history of UTI and reactive gastroenteritis which might contributed to her dehydration and hypovolemia right leg brusie secondary to recent fall Hypovolemic hyponatremia, mild Dehydration secondary to above Right leg wound Left ear wound Generalized weakness secondary to above, improving Fall at home CKD stage III Plan: pt recieved iv hydration. Patient was started on losartan for supine hypertension. Norvasc has been discontinued. Patient was seen by cardiology. 2D echocardiogram report as above. Continue with compression stocking. Patient is orthostatic positive. wound care is following for her left ear ultrasound of the right leg reviewed, negative fir acute dvt on doxycycline started 10/08 Monitor labs and vitals Labs and medication were reviewed.. Monitor labs and vitals. DVT and GI prophylaxis. DVT prophylaxis: Subcutaneous heparin GI Prophylaxis: Pepcid PT/OT: Pending Prognosis is guarded
--- NOTE | 2023-10-15 01:31 | P.PN ---
Subjective Progress Note Date: 10/14/23 This is a pleasant 88 years old female with past medical history of multiple medical problems including hypertension, hyperlipidemia, pulmonary embolism, anxiety. Presents because of falling Patient states that yesterday she was rushing to open the door for workers to get home and start working through her garage. As she was doing that she felt dizzy and passed out Patient thinks is very weak and she woke up right away and she was sent to the hospital Denies chest pain or dyspnea. No abdominal pain vomiting diarrhea, no urinary complaint. No headache dizziness weakness numbness She denies smoking alcohol or illicit drugs Patient states that few days ago she has diarrhea and low appetite but now that is resolved, her appetite back and her diarrhea stopped 2 weeks ago she was treated for UTI with Cipro which is resolved now and she is not taking Cipro anymore On admission she has positive orthostasis She is afebrile and rest of vitals are stable She has mild hyponatremia 132, BUN elevated 24 creatinine within the reference ranges 0.9 CBC and rest of BMP and liver enzymes were unremarkable Patient's wants to be DNR 10/10/2023 Patient is currently lying in the bed. Awake alert and oriented. No complaints of chest pain or shortness of breath. Still complains of dizziness when she get s up. Patient was seen by cardiology and discontinued amlodipine and started on losartan at night for supine hypertension. 2D echocardiogram was ordered. Otherwise patient is afebrile. No cough or sputum production. Laboratory data showed WBC 6.3 hemoglobin 13.7 and platelets 227 sodium 134 potassium 3.2 chloride 106 bicarb is 21 BUN 19 and creatinine 0.93 and blood sugar 105. 10/11/2023 Patient is resting in the bed. Awake alert and oriented x 3. Blood pressure is in 140s this morning. Later this afternoon blood pressure went up to 1 7479. Patient is being continued on losartan 25 mg at bedtime. Patient is also on midodrine 5 mg p.o. 3 times daily as needed. Cardiology is on board. 2D echocardiogram showed reduced LV systolic function with septal/inferior septal thinning of the wall. And hypokinesis. Mildly enlarged right ventricle. Severe left atrial enlargement. Ejection fraction 45 to 50%. Laboratory data showed sodium 138 potassium 3.4 chloride 104 bicarb is 21.4 BUN 20 and creatinine 0.9 and blood sugar is 62. Calcium 8.7. U urine culture showed no growth. 10/12/2023 Patient is resting in the bed. Awake alert and oriented x 3. She complains of dizziness. Especially when she gets out of the bed. No complaints of chest pain or shortness of breath. Otherwise patient is orthostatically positive. Blood pressure is 54/38 with sitting position and standing blood pressure is 85/59. Supine blood pressure 113/34. Patient is on losartan 25 mg at bedtime. Laboratory data showed sodium 139 potassium 3.8 chloride 106 bicarb is 21.6 BUN 19.1 creatinine 0.9 and blood sugar 91. 10/13/2023 Patient is currently sitting in a chair. Awake alert and oriented x 3. Di zziness is better. Patient received IV hydration. Orthostatic vitals still positive. Blood pressure did improve otherwise. No complaints of chest pain or shortness of breath. No cough or sputum production. Laboratory pressure sodium 139 potassium 3.7 chloride 106 bicarb is 21.6 BUN 20.3 and creatinine 0.8. Patient is able to tolerate oral diet and appetite has been improving. 10/14/2023 Patient is sitting in a chair. Awake alert and oriented x 3. No complaints of chest pain or shortness of breath. Patient is still complains of dizziness. Otherwise blood pressure dropped down to 69/49 in standing position Patient continues to be orthostatically positive. Please see the 100 cc fluid bolus. Encourage oral intake. No nausea or vomiting. Laboratory pressure sodium 139 potassium 3.9 chloride 106 bicarb is 20.9 and creatinine 0.9 and BUN 24.7. Patient will be started on IV hydration with normal saline at 75 cc/h. Current medications reviewed. Objective - Vital Signs Vital signs: Vital Signs Temp 97.5 F L 10/14/23 13:48 Pulse 64 10/14/23 13:48 Resp 17 10/14/23 13:48 BP 131/74 10/14/23 13:48 Pulse Ox 98 10/14/23 13:48 FiO2 Intake & Output 10/14/23 10/14/23 10/15/23 06:59 18:59 06:59 Intake Total 600 Balance 600 Intake: Intake, IV Titration 600 Amount Doxycycline 100 mg In 100 Sodium Chloride 0.9% 100 ml @ 100 mls/hr IVPB Q12H [facility] Rx#:[id number] Sodium Chloride 0.9% 500 500 ml 500 ml @ 999 mls/hr IV .Q31M [facility] Rx#:[id number] Other: Voiding Method Toilet # Voids 2 # Bowel Movements 1 - Exam - Exam GENERAL: The patient is alert and oriented x3, not in any acute distress. Well developed, well nourished. -HEENT: Pupils are round and equally reacting to light. EOMI. No scleral icterus. No conjunctival pallor. Normocephalic, atraumatic. No pharyngeal erythema. No thyromegaly. Left ear wound, and infection CARDIOVASCULAR: S1 and S2 present. No murmurs, rubs, or gallops. PULMONARY: Chest is clear to auscultation, no wheezing , no crackles. ABDOMEN: Soft, nontender, nondistended, normoactive bowel sounds. No palpable organomegaly. MUSCULOSKELETAL: No joint swelling or deformity. -EXTREMITIES: No cyanosis, clubbing, or pedal edema. right leg wound, healing NEUROLOGICAL: Gross neurological examination did not reveal any focal deficits. SKIN: No rashes. no petechiae. - Labs CBC & Chem 7: 10/14/23 03:36 10/14/23 03:36 Labs: Abnormal Lab Results - Last 24 Hours (Table) 10/14/23 10/14/23 Range/Units 03:36 03:36 RDW 15.2 H (11.5-14.5) % Lymphocytes # 0.76 L (0.90-5.00) X 10*3/uL Carbon Dioxide 20.9 L (21.6-31.8) mmol/L Anion Gap 12.10 H (4.00-12.00) mmol/L BUN/Creatinine Ratio 27.44 H (12.00-20.00) Ratio Assessment and Plan Assessment: Syncope most likely secondary to orthostatic hypotension. Patient is still orthostatically positive. Uncontrolled hypertension left ear wound and infection/cellulitis. Improved Recent history of UTI and reactive gastroenteritis which might contributed to her dehydration and hypovolemia right leg brusie secondary to recent fall Hypovolemic hyponatremia, mild Dehydration secondary to above Right leg wound Left ear wound Generalized weakness secondary to above, improving Fall at home CKD stage III Plan: Patient will be started on IV hydration with normal saline.. Patient was started on losartan for supine hypertension. Norvasc has been discontinued. Patient was seen by cardiology. 2D echocardiogram report as above. Continue with compression stocking. Patient is orthostatic positive. wound care is following for her left ear ultrasound of the right leg reviewed, negative fir acute dvt on doxycycline started 10/08 Monitor labs and vitals Labs and medication were reviewed.. Monitor labs and vitals. DVT and GI prophylaxis. DVT prophylaxis: Subcutaneous heparin GI Prophylaxis: Pepcid PT/OT: Pending Prognosis is guarded Time with Patient: Greater than 30
[2023-10-15] MEDS: SODIUM CHLORIDE 0.9% 1,000 ML IV SCH (02:42)
[2023-10-15] MEDS: HEPARIN SODIUM,PORCINE 5,000 UNIT/ML 1 ML VIAL SQ SCH (08:27)
[2023-10-15 09:40] LABS: African American GFR (CKD) 89 (>60 ml/min/1.73 sqM); Anion Gap 5 mmol/L; Blood Urea Nitrogen 21 mg/dL (7-17); Calcium 9.5 mg/dL (8.4-10.2); Carbon Dioxide 22 mmol/L (22-30); Chloride 110 mmol/L (98-107); Glucose 83 mg/dL (74-99); Non-African American GFR(CKD) 77 (>60 ml/min/1.73 sqM); Potassium 3.9 mmol/L (3.5-5.1); Sodium 137 mmol/L (137-145)
--- NOTE | 2023-10-15 16:14 | P.PN ---
Subjective Progress Note Date: 10/15/23 Interval History: This is a pleasant 88 years old female with past medical history of multiple medical problems including hypertension, hyperlipidemia, pulmonary embolism, anxiety. Presents because of falling Patient states that yesterday she was rushing to open the door for workers to get home and start working through her garage. As she was doing that she felt dizzy and passed out Patient thinks is very weak and she woke up right away and she was sent to the hospital Denies chest pain or dyspnea. No abdominal pain vomiting diarrhea, no urinary complaint. No headache dizziness weakness numbness She denies smoking alcohol or illicit drugs Patient states that few days ago she has diarrhea and low appetite but now that is resolved, her appetite back and her diarrhea stopped 2 weeks ago she was treated for UTI with Cipro which is resolved now and she is not taking Cipro anymore On admission she has positive orthostasis She is afebrile and rest of vitals are stable She has mild hyponatremia 132, BUN elevated 24 creatinine within the reference ranges 0.9 CBC and rest of BMP and liver enzymes were unremarkable Patient's wants to be DNR 10/10/2023 Patient is currently lying in the bed. Awake alert and oriented. No complaints of chest pain or shortness of breath. Still complains of dizziness when she gets up. Patient was seen by cardiology and discontinued amlodipine and started on losartan at night for supine hypertension. 2D echocardiogram was ordered. Otherwise patient is afebrile. No cough or sputum production. Laboratory data showed WBC 6.3 hemoglobin 13.7 and platelets 227 sodium 134 potassium 3.2 chloride 106 bicarb is 21 BUN 19 and creatinine 0.93 and blood sugar 105. 10/11/2023 Patient is resting in the bed. Awake alert and oriented x 3. Blood pressure is in 140s this morning. Later this afternoon blood pressure went up to 1 7479. Patient is being continued on losartan 25 mg at bedtime. Patient is also on midodrine 5 mg p.o. 3 times daily as needed. Cardiology is on board. 2D echocardiogram showed reduced LV systolic function with septal/inferior septal thinning of the wall. And hypokinesis. Mildly enlarged right ventricle. Severe left atrial enlargement. Ejection fraction 45 to 50%. Laboratory data showed sodium 138 potassium 3.4 chloride 104 bicarb is 21.4 BUN 20 and creatinine 0.9 and blood sugar is 62. Calcium 8.7. U urine culture showed no growth. 10/12/2023 Patient is resting in the bed. Awake alert and oriented x 3. She complains of dizziness. Especially when she gets out of the bed. No complaints of chest pain or shortness of breath. Otherwise patient is orthostatically positive. Blood pressure is 54/38 with sitting position and standing blood pressure is 85/59. Supine blood pressure 113/34. Patient is on losartan 25 mg at bedtime. Laboratory data showed sodium 139 potassium 3.8 chloride 106 bicarb is 21.6 BUN 19.1 creatinine 0.9 and blood sugar 91. 10/13/2023 Patient is currently sitting in a chair. Awake alert and oriented x 3. Dizziness is better. Patient received IV hydration. Orthostatic vitals still positive. Blood pressure did improve otherwise. No complaints of chest pain or shortness of breath. No cough or sputum production. Laboratory pressure sodium 139 potassium 3.7 chloride 106 bicarb is 21.6 BUN 20.3 and creatinine 0.8. Patient is able to tolerate oral diet and appetite has been improving. 10/14/2023 Patient is sitting in a chair. Awake alert and oriented x 3. No complaints of chest pain or shortness of breath. Patient is still complains of dizziness. Otherwise blood pressure dropped down to 69/49 in standing position Patient continues to be orthostatically positive. Please see the 100 cc fluid bolus. Encourage oral intake. No nausea or vomiting. Laboratory pressure sodium 139 potassium 3.9 chloride 106 bicarb is 20.9 and creatinine 0.9 and BUN 24.7. Patient will be started on IV hydration with normal saline at 75 cc/h. 10/15/2023 Patient vital stable, orthostats still positive, will continue on IV fluids. BMP today is unremarkable. Awaiting PT/OT evaluation. Assessment and plan: Syncope most likely secondary to orthostatic hypotension. Patient is still orthostatically positive. Uncontrolled hypertension left ear wound and infection/cellulitis. Improved Recent history of UTI and reactive gastroenteritis which might contributed to her dehydration and hypovolemia right leg brusie secondary to recent fall Hypovolemic hyponatremia, mild Dehydration secondary to above Right leg wound Left ear wound Generalized weakness secondary to above, improving Fall at home CKD stage III Plan: Patient will be started on IV hydration with normal saline.. Patient was started on losartan for supine hypertension. Norvasc has been discontinued. Patient was seen by cardiology. 2D echocardiogram report as above. Midodrine. Continue with compression stocking. Patient is orthostatic positive. wound care is following for her left ear ultrasound of the right leg reviewed, negative fir acute dvt on doxycycline started 10/08--completed Monitor labs and vitals Labs and medication were reviewed.. Monitor labs and vitals. DVT prophylaxis: Subcutaneous heparin GI Prophylaxis: Pepcid PT/OT: Pending PHYSICAL EXAMINATION: GENERAL: The patient is A&O x3, NAD HEENT: EOMI, Sclerae anicteric, Moist Mucous membranes Neck: Supple, Non tender, No JVD CARDIOVASCULAR: S1, S2 present. No murmurs, rubs, or gallops. PULMONARY: Equal breath souds B/L, No wheezing, No crackles. ABDOMEN: Soft, nontender, nondistended, normoactive bowel sounds. No guarding or rebound tenderness. MUSCULOSKELETAL: No edema, No cyanosis. No clubbing. Normal ROM. Intact peripheral pulses. Skin; Warm. No rash. REVIEW OF SYSTEMS: CONSTITUTIONAL: No fever or chills. CARDIOVASCULAR: No chest pain, palpitations or syncope. PULMONARY: No shortness of breath, no cough, sore throat. GASTROINTESTINAL: No nausea, vomiting, diarrhea, abdominal pain. : No Dysuria, urgency, frequency. Extremities: No edema. NEUROLOGICAL: No headaches, no weakness, or numbness Dictation was produced using [employer] dictation software. please excuse any grammatical, word or spelling errors. Objective - Vital Signs Vital signs: Vital Signs Temp 97.8 F 10/15/23 14:00 Pulse 71 10/15/23 14:00 Resp 18 10/15/23 14:00 BP 164/80 10/15/23 14:00 Pulse Ox 97 10/15/23 14:00 FiO2 Intake & Output 10/14/23 10/15/23 10/15/23 18:59 06:59 18:59 Intake Total 600 Balance 600 Intake: Intake, IV Titration 600 Amount Doxycycline 100 mg In 100 Sodium Chloride 0.9% 100 ml @ 100 mls/hr [facility] Rx#:[id number] Sodium Chloride 0.9% 500 500 ml 500 ml @ 999 mls/hr IV .Q31M [facility] Rx#:[id number] Other: Voiding Method Toilet # Voids 6 # Bowel Movements 1 - Labs CBC & Chem 7: 10/14/23 03:36 10/15/23 07:21 Labs: Abnormal Lab Results - Last 24 Hours (Table) 10/15/23 Range/Units 07:21 Chloride 110 H (98-107) mmol/L BUN 21 H (7-17) mg/dL
--- NOTE | 2023-10-16 14:58 | P.PN ---
Subjective Progress Note Date: 10/16/23 Interval History: This is a pleasant 88 years old female with past medical history of multiple medical problems including hypertension, hyperlipidemia, pulmonary embolism, anxiety. Presents because of falling Patient states that yesterday she was rushing to open the door for workers to get home and start working through her garage. As she was doing that she felt dizzy and passed out Patient thinks is very weak and she woke up right away and she was sent to the hospital Denies chest pain or dyspnea. No abdominal pain vomiting diarrhea, no urinary complaint. No headache dizziness weakness numbness She denies smoking alcohol or illicit drugs Patient states that few days ago she has diarrhea and low appetite but now that is resolved, her appetite back and her diarrhea stopped 2 weeks ago she was treated for UTI with Cipro which is resolved now and she is not taking Cipro anymore On admission she has positive orthostasis She is afebrile and rest of vitals are stable She has mild hyponatremia 132, BUN elevated 24 creatinine within the reference ranges 0.9 CBC and rest of BMP and liver enzymes were unremarkable Patient's wants to be DNR 10/10/2023 Patient is currently lying in the bed. Awake alert and oriented. No complaints of chest pain or shortness of breath. Still complains of dizziness when she gets up. Patient was seen by cardiology and discontinued amlodipine and started on losartan at night for supine hypertension. 2D echocardiogram was ordered. Otherwise patient is afebrile. No cough or sputum production. Laboratory data showed WBC 6.3 hemoglobin 13.7 and platelets 227 sodium 134 potassium 3.2 chloride 106 bicarb is 21 BUN 19 and creatinine 0.93 and blood sugar 105. 10/11/2023 Patient is resting in the bed. Awake alert and oriented x 3. Blood pressure is in 140s this morning. Later this afternoon blood pressure went up to 1 7479. Patient is being continued on losartan 25 mg at bedtime. Patient is also on midodrine 5 mg p.o. 3 times daily as needed. Cardiology is on board. 2D echocardiogram showed reduced LV systolic function with septal/inferior septal thinning of the wall. And hypokinesis. Mildly enlarged right ventricle. Severe left atrial enlargement. Ejection fraction 45 to 50%. Laboratory data showed sodium 138 potassium 3.4 chloride 104 bicarb is 21.4 BUN 20 and creatinine 0.9 and blood sugar is 62. Calcium 8.7. U urine culture showed no growth. 10/12/2023 Patient is resting in the bed. Awake alert and oriented x 3. She complains of dizziness. Especially when she gets out of the bed. No complaints of chest pain or shortness of breath. Otherwise patient is orthostatically positive. Blood pressure is 54/38 with sitting position and standing blood pressure is 85/59. Supine blood pressure 113/34. Patient is on losartan 25 mg at bedtime. Laboratory data showed sodium 139 potassium 3.8 chloride 106 bicarb is 21.6 BUN 19.1 creatinine 0.9 and blood sugar 91. 10/13/2023 Patient is currently sitting in a chair. Awake alert and oriented x 3. Dizziness is better. Patient received IV hydration. Orthostatic vitals still positive. Blood pressure did improve otherwise. No complaints of chest pain or shortness of breath. No cough or sputum production. Laboratory pressure sodium 139 potassium 3.7 chloride 106 bicarb is 21.6 BUN 20.3 and creatinine 0.8. Patient is able to tolerate oral diet and appetite has been improving. 10/14/2023 Patient is sitting in a chair. Awake alert and oriented x 3. No complaints of chest pain or shortness of breath. Patient is still complains of dizziness. Otherwise blood pressure dropped down to 69/49 in standing position Patient continues to be orthostatically positive. Please see the 100 cc fluid bolus. Encourage oral intake. No nausea or vomiting. Laboratory pressure sodium 139 potassium 3.9 chloride 106 bicarb is 20.9 and creatinine 0.9 and BUN 24.7. Patient will be started on IV hydration with normal saline at 75 cc/h. 10/15/2023 Patient vital stable, orthostats still positive, will continue on IV fluids. BMP today is unremarkable. Awaiting PT/OT evaluation. 10/16/23 Patient was seen and examined today. Patient feeling better today. Dizziness is improving. Generalized weakness is improving. Assessment and plan: Syncope most likely secondary to orthostatic hypotension. Patient is still orthostatically positive. Uncontrolled hypertension left ear wound and infection/cellulitis. Improved Recent history of UTI and reactive gastroenteritis which might contributed to her dehydration and hypovolemia right leg brusie secondary to recent fall Hypovolemic hyponatremia, mild Dehydration secondary to above Right leg wound Left ear wound Generalized weakness secondary to above, improving Fall at home CKD stage III Plan: IV hydration with normal saline.. Patient was started on losartan for supine hypertension. Norvasc has been discontinued. Patient was seen by cardiology. 2D echocardiogram report as above. Midodrine. Continue with compression stocking. Patient is orthostatic positive. wound care is following for her left ear ultrasound of the right leg reviewed, negative for acute dvt on doxycycline started 10/08--completed Monitor labs and vitals Labs and medication were reviewed.. Monitor labs and vitals. DVT prophylaxis: Subcutaneous heparin GI Prophylaxis: Pepcid PT/OT: Pending, anticipate subacute rehab. PHYSICAL EXAMINATION: GENERAL: The patient is A&O x3, NAD HEENT: EOMI, Sclerae anicteric, Moist Mucous membranes Neck: Supple, Non tender, No JVD CARDIOVASCULAR: S1, S2 present. No murmurs, rubs, or gallops. PULMONARY: Equal breath souds B/L, No wheezing, No crackles. ABDOMEN: Soft, nontender, nondistended, normoactive bowel sounds. No guarding or rebound tenderness. MUSCULOSKELETAL: No edema, No cyanosis. No clubbing. Normal ROM. Intact peripheral pulses. Skin; Warm. No rash. REVIEW OF SYSTEMS: CONSTITUTIONAL: No fever or chills. CARDIOVASCULAR: No chest pain, palpitations or syncope. PULMONARY: No shortness of breath, no cough, sore throat. GASTROINTESTINAL: No nausea, vomiting, diarrhea, abdominal pain. : No Dysuria, urgency, frequency. Extremities: No edema. NEUROLOGICAL: No headaches, no weakness, or numbness Dictation was produced using [employer] dictation software. please excuse any grammatical, word or spelling errors. Objective - Vital Signs Vital signs: Vital Signs Temp 97.5 F L 10/16/23 14:00 Pulse 68 10/16/23 14:00 Resp 18 10/16/23 14:00 BP 135/78 10/16/23 14:00 Pulse Ox 96 10/16/23 14:00 FiO2 Intake & Output 10/15/23 10/16/23 10/16/23 18:59 06:59 18:59 Other: Voiding Method Toilet # Voids 3 4 # Bowel Movements 2 - Labs CBC & Chem 7: 10/14/23 03:36 10/15/23 07:21
[2023-10-17 07:29] VITALS: BP 158/75; PULSE 60; RESP 20; TEMP 97.7
--- NOTE | 2023-11-17 13:46 | CDI ---
Documentation Clarification Form Date: 11/17/2023 01:29:15 PM From: Jerrica Murray Phone: Admit Date: 10/07/2023 06:49:00 PM Patient Name: Zuleima Her Visit Number: [id number] Discharge Date: 10/21/2023 06:00:00 PM ATTENTION: The Clinical Documentation Specialists (CDI) and [facility] Coding Staff appreciate your assistance in clarifying documentation. Please respond to the clarification below the line at the bottom and electronically sign. The CDI & [facility] Coding staff will review the response and follow-up if needed. Please note: Queries are made part of the Legal Health Record. If you have any questions, please contact the author of this message via ITS. Doctor/Provider: Tray E Sheet Orthostatic hypotension is documented per ED Note and throughout the Progress Notes. Additional clarification regarding this diagnosis is requested. History/Risk Factors: 88yo F, syncoped/torthostatic hypotension, PHTN, recent UTI& reactivegastroenteritis, dehydration, hypovolemia, hyponatremia, RT legwound, LT earwound, generalized weakness, fall at home, CKD stage III Clinical Indicators: T 97.5 NJ 57- 58 Pulse Rate [65 Right PO] Pulse Rate [60 Right Sitting PO] Pulse Rate [80 Right Standing PO] RR 18 16 BP 119/76 180/83 BP 133/74 [Right Arm Sitting] BP 94/56 [Right Arm Standing] BP 184/87 [Right Arm Supine] O2 Sat by Pulse 96 96 Treatment: V hydration with normal saline. Patient was started on losartan for supine hypertension. Norvasc has been discontinued. Patient was seen by cardiology. 2Dechocardiogramreport as above. Midodrine. Continue withcompressionstocking. Patient is orthostatic positive. Woundcare is following for her left ear ultrasoundof the right leg reviewed,negative for acutedvt on doxycycline started 10/08completed Monitor labs and vitals Labs and medication were reviewed. Monitor labs and vitals. DC to rehab Can the hypotension be further specified? [ ] Chronic Hypotension [xx ] Hypotension due to dehydration [xx ] Hypotension due to hypovolemia [ ] Other Condition, please specify [ ] Unable to determine (Template Last Revised: May 2020) MTDD
== END 2023-10-21 18:00 | DRG 315 ==
LOC: EC 14:03 → 4SSUR 18:49
PROVIDERS: ADMIT Internal Medicine; ATTEND Internal Medicine
DX: I95.89 Other hypotension (principal); E87.1 Hypo-osmolality and hyponatremia; I95.1 Orthostatic hypotension; I27.20 Pulmonary hypertension, unspecified; N18.30 Chronic kidney disease, stage 3 unspecified; S81.811A Laceration without foreign body, right lower leg, initial encounter; I13.10 Hypertensive heart and chronic kidney disease without heart failure, with stage 1 through stage 4 chronic kidney disease, or unspecified chronic kidney disease; I08.0 Rheumatic disorders of both mitral and aortic valves; Z66 Do not resuscitate; I25.10 Atherosclerotic heart disease of native coronary artery without angina pectoris; H60.12 Cellulitis of left external ear; E86.0 Dehydration; E78.5 Hyperlipidemia, unspecified; E86.1 Hypovolemia; S01.312A Laceration without foreign body of left ear, initial encounter; W18.30XA Fall on same level, unspecified, initial encounter; Z79.82 Long term (current) use of aspirin; Z79.899 Other long term (current) drug therapy; Z79.1 Long term (current) use of non-steroidal anti-inflammatories (NSAID); Z87.891 Personal history of nicotine dependence; Z86.72 Personal history of thrombophlebitis; Z86.711 Personal history of pulmonary embolism; Z86.19 Personal history of other infectious and parasitic diseases; Z95.5 Presence of coronary angioplasty implant and graft; Y92.015 Private garage of single-family (private) house as the place of occurrence of the external cause; Z87.440 Personal history of urinary (tract) infections
CPT/HCPCS: 36415; 80048; 80053; 80076; 81001; 83735; 83880; 85025; 87086; 93306

== ENCOUNTER → 2023-10-31 | Outpatient (CLI) | payer MEDICARE | END | disposition home or self-care (01) | LOC: LABPRL 11:30 | PROVIDERS: ATTEND Family Medicine | CPT/HCPCS: 87077; 87086; 87186 ==

== ENCOUNTER → 2023-11-05 | Outpatient (CLI) | payer MEDICARE | END | disposition home or self-care (01) | LOC: LABPRL 12:34 | PROVIDERS: ATTEND Internal Medicine Geriatric Medicine | CPT/HCPCS: 87077; 87086; 87186 ==